=== PATIENT | male | born 1965 | race African-American/Black ===

== ENCOUNTER 2017-03-22 12:45 | Inpatient (IN) | payer OTHER ==
[2017-03-22 18:35] VITALS: BMI 31.6
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
[2017-03-22] MEDS ORDERED: MAGNESIUM CITRATE 300 ML BOTTLE PO PRN (23:44)
[2017-03-22] MEDS ORDERED: IBUPROFEN 400 MG TABLET (FP) PO PRN (23:44)
[2017-03-22] MEDS ORDERED: chlordiazePOXIDE HCL 25 MG CAPSULE PO ONE (23:44)
[2017-03-22] MEDS ORDERED: guaiFENesin/D-METHORPHAN HB 10 ML UNIT-DOSE CUPS PO PRN (23:44)
[2017-03-22] MEDS ORDERED: P-EPHED 60MG/TRIPROLIDI 2.5MG TABLET PO PRN (23:44)
[2017-03-22] MEDS ORDERED: NICOTINE POLACRILEX 2 MG GUM BC PRN (23:44)
[2017-03-22] MEDS ORDERED: MAG HYDROX/AL HYDROX/SIMETH 30 ML UNIT-DOSE CUP PO PRN (23:44)
[2017-03-22] MEDS ORDERED: LOPERAMIDE HCL 2 MG CAPSULE PO PRN (23:44)
[2017-03-22] MEDS ORDERED: chlordiazePOXIDE HCL 25 MG CAPSULE PO PRN (23:44)
[2017-03-22] MEDS ORDERED: MAGNESIUM HYDROX 2400MG/30ML ORAL SUSPENSION 30 ML CUP PO PRN (23:44)
[2017-03-22] MEDS ORDERED: MENTHOL/PHENOL 1 EACH UD MM PRN (23:44)
[2017-03-22] MEDS ORDERED: ALBUTEROL SO4 18 GM HFA INHALER IH PRN (23:46)
[2017-03-23] MEDS: chlordiazePOXIDE HCL 25 MG CAPSULE PO SCH ×6 (00:03→22:10)
[2017-03-23] MEDS: MONTELUKAST NA 10 MG TABLET PO SCH ×2 (00:06→22:10)
[2017-03-23] MEDS ORDERED: chlordiazePOXIDE HCL 25 MG CAPSULE PO PRN (00:10)
[2017-03-23] MEDS: hydrOXYzine PAMOATE 50 MG CAPSULE (FP) PO PRN (00:51)
[2017-03-23] MEDS: ACETAMINOPHEN 325 MG TABLET (FP) PO PRN (00:51)
[2017-03-23] MEDS ORDERED: chlordiazePOXIDE HCL 25 MG CAPSULE PO SCH (05:00)
[2017-03-23] MEDS ORDERED: EMTRICITABINE/TENOFOV ALAFENAM (DESCOVY) TABLET PO SCH (10:00)
[2017-03-23 10:43] LABS: HEMATOCRIT 37.4 % (35.4-49); HEMOGLOBIN 13.2 GM/dL (11.7-16.9); MCH 33.1 pg (25.7-33.7); MCHC 35.2 g/dl (32.0-35.9); MEAN CELL VOLUME 93.8 fl (80-96); PLATELET COUNT 224 K/MM3 (134-434); RBC 3.99 M/mm3 (4.00-5.60); RDW 12.7 % (11.9-15.9); WHITE BLOOD COUNT 4.1 K/mm3 (4.0-10.0)
[2017-03-23 10:47] LABS: ALBUMIN 3.8 g/dl (3.4-5.0); ANION GAP 9 (8-16); BILIRUBIN,TOTAL 0.5 mg/dL (0.2-1.0); BLOOD UREA NITROGEN 10 mg/dL (7-18); CALCIUM 8.7 mg/dL (8.5-10.1); CHLORIDE 102 mmol/L (98-107); CO2 27 mmol/L (21-32); CREATININE 0.8 mg/dL (0.7-1.3); GLUCOSE,RANDOM 92 mg/dL (74-106); POTASSIUM 3.6 mmol/L (3.5-5.1); SGOT/AST 30 U/L (15-37); SGPT/ALT 27 U/L (12-78); SODIUM 138 mmol/L (136-145)
[2017-03-23 10:48] LABS: ALK PHOS 91 U/L (45-117)
[2017-03-23] MEDS: ASPIRIN 81 MG CHEWABLE TABLETS PO SCH (11:24)
[2017-03-23] MEDS: RANITIDINE HCL 150 MG TABLET (FP) PO SCH (11:24)
[2017-03-23] MEDS: PRENATAL VITAMINS W/ FOLIC ACID TABLET (FP) PO SCH (11:25)
--- NOTE | 2017-03-23 12:20 | PN ---
[facility] CIWA - CIWA Score Nausea/Vomitin Muscle Tremors: 3 Anxiety: 3 Agitation: 3 Paroxysmal Sweats: 3 Orientation: 0-Oriented Tacttile Disturbances: 0-None Auditory Disturbances: 0-None Visual Disturbances: 0-None Headache: 0-None Present CIWA-Ar Total Score: 15 BHS Progress Note (SOAP) Subjective: tremors nasal congestion sleep disturbance Objective: 03/23/17 12:17 sleeping but arousable nasal congestion Vital Signs Temperature 97.7 F 03/23/17 10:34 Pulse Rate 76 03/23/17 10:34 Respiratory Rate 18 03/23/17 10:34 Blood Pressure 111/78 03/23/17 10:34 O2 Sat by Pulse Oximetry (%) Laboratory Last Values WBC 4.1 K/mm3 (4.0-10.0) 03/23/17 08:00 RBC 3.99 M/mm3 (4.00-5.60) L 03/23/17 08:00 Hgb 13.2 GM/dL (11.7-16.9) 03/23/17 08:00 Hct 37.4 % (35.4-49) 03/23/17 08:00 MCV 93.8 fl (80-96) 03/23/17 08:00 MCH 33.1 pg (25.7-33.7) 03/23/17 08:00 MCHC 35.2 g/dl (32.0-35.9) 03/23/17 08:00 RDW 12.7 % (11.9-15.9) 03/23/17 08:00 Plt Count 224 K/MM3 (134-434) D 03/23/17 08:00 MPV 8.0 fl (7.5-11.1) 03/23/17 08:00 Sodium 138 mmol/L (136-145) 03/23/17 08:00 Potassium 3.6 mmol/L (3.5-5.1) 03/23/17 08:00 Chloride 102 mmol/L (98-107) 03/23/17 08:00 Carbon Dioxide 27 mmol/L (21-32) 03/23/17 08:00 Anion Gap 9 (8-16) 03/23/17 08:00 BUN 10 mg/dL (7-18) 03/23/17 08:00 Creatinine 0.8 mg/dL (0.7-1.3) 03/23/17 08:00 Creat Clearance w eGFR > 60 (>60) 03/23/17 08:00 Random Glucose 92 mg/dL (74-106) 03/23/17 08:00 Calcium 8.7 mg/dL (8.5-10.1) 03/23/17 08:00 Total Bilirubin 0.5 mg/dL (0.2-1.0) D 03/23/17 08:00 AST 30 U/L (15-37) 03/23/17 08:00 ALT 27 U/L (12-78) 03/23/17 08:00 Alkaline Phosphatase 91 U/L (45-117) D 03/23/17 08:00 Total Protein 7.0 g/dl (6.4-8.2) 03/23/17 08:00 Albumin 3.8 g/dl (3.4-5.0) 03/23/17 08:00 labs noted Assessment: 03/23/17 12:19 withdrawal sx no acute distress Plan: continue detox
[2017-03-23] MEDS: RITONAVIR 100 MG TABLET PO SCH (15:41)
[2017-03-23] MEDS: EMTRICITABINE 200MG/TENOFOVIR 300MG PO SCH (15:41)
[2017-03-23] MEDS: DARUNAVIR ETHANOLATE 800 MG TAB PO SCH (15:42)
[2017-03-23] MEDS: NICOTINE 14 MG/24 HOURS TOPICAL PATCH TD SCH (15:51)
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
--- NOTE | 2017-03-23 16:48 | EKG ---
Test Reason : Blood Pressure : / mmHG Vent. Rate : 104 BPM Atrial Rate : 104 BPM P-R Int : 162 ms QRS Dur : 088 ms QT Int : 350 ms P-R-T Axes : 055 -13 058 degrees QTc Int : 460 ms SINUS TACHYCARDIA OTHERWISE NORMAL ECG NO PREVIOUS ECGS AVAILABLE Confirmed by FLORENTINO DESOUZA MD ([id number]) on 03/23/2017 4:48:32 PM Referred By: TRACEY BOBO Confirmed By:FLORENTINO DESOUZA MD
[2017-03-23] MEDS: QUEtiapine FUMARATE 200 MG TABLET PO SCH (22:10)
[2017-03-23] MEDS: THIAMINE HCL 100 MG TABLET (FP) PO SCH (22:10)
[2017-03-24] MEDS ORDERED: chlordiazePOXIDE 5 MG CAPSULE PO SCH (05:00)
[2017-03-24] MEDS: chlordiazePOXIDE HCL 25 MG CAPSULE PO SCH ×4 (05:18→22:00)
[2017-03-24] MEDS: DARUNAVIR ETHANOLATE 800 MG TAB PO SCH (10:59)
[2017-03-24] MEDS: ASPIRIN 81 MG CHEWABLE TABLETS PO SCH (10:59)
[2017-03-24] MEDS: PRENATAL VITAMINS W/ FOLIC ACID TABLET (FP) PO SCH (10:59)
[2017-03-24] MEDS: RANITIDINE HCL 150 MG TABLET (FP) PO SCH (10:59)
[2017-03-24] MEDS: EMTRICITABINE 200MG/TENOFOVIR 300MG PO SCH (11:00)
[2017-03-24] MEDS: RITONAVIR 100 MG TABLET PO SCH (11:00)
[2017-03-24] MEDS: NICOTINE 14 MG/24 HOURS TOPICAL PATCH TD SCH (11:01)
--- NOTE | 2017-03-24 12:16 | PN ---
[facility] CIWA - CIWA Score Nausea/Vomitin-No Nausea/No Vomiting Muscle Tremors: 3 Anxiety: 3 Agitation: 3 Paroxysmal Sweats: 1-Minimal Palms Moist Orientation: 0-Oriented Tacttile Disturbances: 0-None Auditory Disturbances: 0-None Visual Disturbances: 0-None Headache: 0-None Present CIWA-Ar Total Score: 10 S Progress Note (SOAP) Subjective: sweat tremor anxiety irritable Objective: 03/24/17 12:16 Vital Signs Temperature 97.0 F L 03/24/17 10:00 Pulse Rate 65 03/24/17 10:00 Respiratory Rate 18 03/24/17 10:00 Blood Pressure 115/78 03/24/17 10:00 O2 Sat by Pulse Oximetry (%) Laboratory Last Values WBC 4.1 K/mm3 (4.0-10.0) 03/23/17 08:00 RBC 3.99 M/mm3 (4.00-5.60) L 03/23/17 08:00 Hgb 13.2 GM/dL (11.7-16.9) 03/23/17 08:00 Hct 37.4 % (35.4-49) 03/23/17 08:00 MCV 93.8 fl (80-96) 03/23/17 08:00 MCH 33.1 pg (25.7-33.7) 03/23/17 08:00 MCHC 35.2 g/dl (32.0-35.9) 03/23/17 08:00 RDW 12.7 % (11.9-15.9) 03/23/17 08:00 Plt Count 224 K/MM3 (134-434) D 03/23/17 08:00 MPV 8.0 fl (7.5-11.1) 03/23/17 08:00 Sodium 138 mmol/L (136-145) 03/23/17 08:00 Potassium 3.6 mmol/L (3.5-5.1) 03/23/17 08:00 Chloride 102 mmol/L (98-107) 03/23/17 08:00 Carbon Dioxide 27 mmol/L (21-32) 03/23/17 08:00 Anion Gap 9 (8-16) 03/23/17 08:00 BUN 10 mg/dL (7-18) 03/23/17 08:00 Creatinine 0.8 mg/dL (0.7-1.3) 03/23/17 08:00 Creat Clearance w eGFR > 60 (>60) 03/23/17 08:00 Random Glucose 92 mg/dL (74-106) 03/23/17 08:00 Calcium 8.7 mg/dL (8.5-10.1) 03/23/17 08:00 Total Bilirubin 0.5 mg/dL (0.2-1.0) D 03/23/17 08:00 AST 30 U/L (15-37) 03/23/17 08:00 ALT 27 U/L (12-78) 03/23/17 08:00 Alkaline Phosphatase 91 U/L (45-117) D 03/23/17 08:00 Total Protein 7.0 g/dl (6.4-8.2) 03/23/17 08:00 Albumin 3.8 g/dl (3.4-5.0) 03/23/17 08:00 RPR Titer Nonreactive (NONREACTIVE) 03/23/17 08:00 lab noted Assessment: 03/24/17 12:16 withdrawal sx Plan: continue detox
[2017-03-24] MEDS: THIAMINE HCL 100 MG TABLET (FP) PO SCH (22:00)
[2017-03-24] MEDS: QUEtiapine FUMARATE 200 MG TABLET PO SCH (22:00)
[2017-03-24] MEDS: MONTELUKAST NA 10 MG TABLET PO SCH (22:00)
[2017-03-24] MEDS: hydrOXYzine PAMOATE 50 MG CAPSULE (FP) PO PRN (22:00)
[2017-03-25] MEDS ORDERED: chlordiazePOXIDE HCL 10 MG CAPSULE PO SCH (05:00)
[2017-03-25] MEDS: chlordiazePOXIDE 5 MG CAPSULE PO SCH ×4 (05:39→22:05)
[2017-03-25] MEDS: RITONAVIR 100 MG TABLET PO SCH (10:15)
[2017-03-25] MEDS: EMTRICITABINE 200MG/TENOFOVIR 300MG PO SCH (10:15)
[2017-03-25] MEDS: RANITIDINE HCL 150 MG TABLET (FP) PO SCH (10:15)
[2017-03-25] MEDS: DARUNAVIR ETHANOLATE 800 MG TAB PO SCH (10:15)
[2017-03-25] MEDS: PRENATAL VITAMINS W/ FOLIC ACID TABLET (FP) PO SCH (10:15)
[2017-03-25] MEDS: ASPIRIN 81 MG CHEWABLE TABLETS PO SCH (10:15)
[2017-03-25] MEDS: NICOTINE 14 MG/24 HOURS TOPICAL PATCH TD SCH (10:16)
--- NOTE | 2017-03-25 12:49 | PN ---
BHS Progress Note (SOAP) Subjective: ALERT,IRRITABLE,ANXIOUS,INTERRUPTED SLEEP,TREMOR Objective: 03/25/17 12:48 Vital Signs Temperature 98 F 03/25/17 11:51 Pulse Rate 83 03/25/17 11:51 Respiratory Rate 18 03/25/17 11:51 Blood Pressure 115/60 03/25/17 11:51 O2 Sat by Pulse Oximetry (%) Assessment: 03/25/17 12:48 WITHDRAWAL SYMPTOM Plan: CONTINUE DETOX,DISCHARGE IN AM
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
[2017-03-25] MEDS: THIAMINE HCL 100 MG TABLET (FP) PO SCH (22:04)
[2017-03-25] MEDS: QUEtiapine FUMARATE 200 MG TABLET PO SCH (22:05)
[2017-03-25] MEDS: MONTELUKAST NA 10 MG TABLET PO SCH (22:05)
[2017-03-26] MEDS: chlordiazePOXIDE HCL 10 MG CAPSULE PO SCH ×2 (05:49→12:22)
[2017-03-26] MEDS: DARUNAVIR ETHANOLATE 800 MG TAB PO SCH (10:06)
[2017-03-26] MEDS: PRENATAL VITAMINS W/ FOLIC ACID TABLET (FP) PO SCH (10:06)
[2017-03-26] MEDS: ASPIRIN 81 MG CHEWABLE TABLETS PO SCH (10:06)
[2017-03-26] MEDS: RANITIDINE HCL 150 MG TABLET (FP) PO SCH (10:06)
[2017-03-26] MEDS: RITONAVIR 100 MG TABLET PO SCH (12:19)
[2017-03-26] MEDS: EMTRICITABINE 200MG/TENOFOVIR 300MG PO SCH (12:19)
[2017-03-26] MEDS: NICOTINE 14 MG/24 HOURS TOPICAL PATCH TD SCH (12:20)
[2017-03-26] MEDS: ACETAMINOPHEN 325 MG TABLET (FP) PO PRN (12:21)
--- NOTE | 2017-03-26 12:40 | DS ---
[facility] Detox Discharge Summary Admission Date: 03/22/17 Discharge Date: 03/26/17 - History Present History: Alcohol Dependence, Cocaine Dependence Additional Comments: PATIENT GOING TO [facility] ([facility] FOR AFTERCARE. PATIENT WAS DISCHARGED FROM DETOX UNIT IN STABLE MEDICAL CONDITION. Pertinent Past History: History of MA, Schizophrenia, HIV, Depression, Asthma, Insomnia, Bipolar Disorder, Nicotine Dependence. - Physical Exam Results Vital Signs: Vital Signs Temperature 96.7 F L 03/26/17 10:17 Pulse Rate 84 03/26/17 10:17 Respiratory Rate 18 03/26/17 10:17 Blood Pressure 109/79 03/26/17 10:17 O2 Sat by Pulse Oximetry (%) Pertinent Admission Physical Exam Findings: WITHDRAWAL SYMPTOMS. Laboratory Tests 03/23/17 03/23/17 03/23/17 08:00 08:00 08:00 WBC 4.1 RBC 3.99 L Hgb 13.2 Hct 37.4 MCV 93.8 MCH 33.1 MCHC 35.2 RDW 12.7 Plt Count 224 D MPV 8.0 Sodium 138 Potassium 3.6 Chloride 102 Carbon Dioxide 27 Anion Gap 9 BUN 10 Creatinine 0.8 Creat Clearance w eGFR > 60 Random Glucose 92 Calcium 8.7 Total Bilirubin 0.5 D AST 30 ALT 27 Alkaline Phosphatase 91 D Total Protein 7.0 Albumin 3.8 RPR Titer Nonreactive LABS NOTED. - Treatment Hospital Course: Detox Protocol Followed, Detoxed Safely, Responded well, Discharged Condition Good, Rehab Referral Accepted Patient has Accepted a Rehab Referral to: [facility] ([facility]) . - Medication Discharge Medications: Ambulatory Orders Quetiapine Fumarate [Seroquel -] 500 mg PO HS 06/23/15 Quetiapine Fumarate [Seroquel -] 200 mg PO DAILY #30 tab 06/24/15 Albuterol Sulfate Inhaler - [Ventolin HFA Inhaler -] 2 inh PO Q4H PRN #1 inhaler 06/27/15 Aspirin [ASA -] 81 mg PO DAILY #30 tab.chew 06/27/15 Atazanavir [Reyataz -] 300 mg PO DAILY #30 capsule 06/27/15 Emtricitabine/Tenofovir [Truvada -] 200 - 300 mg PO DAILY #30 tablet 06/27/15 Montelukast Na [Singulair -] 10 mg PO DAILY #30 tablet 06/27/15 Ranitidine [Zantac -] 150 mg PO DAILY #30 tablet 06/27/15 Ritonavir [Norvir -] 100 mg PO DAILY #30 tab 07/25/15 Darunavir Ethanolate [Prezista -] 1 tab PO DAILY 03/22/17 Emtricitabine/Tenofov Alafenam [Descovy 200-25 mg Tablet (Nf)] 1 tab PO DAILY - Diagnosis (1) Insomnia Current Visit: Yes Status: Acute Qualifiers: Insomnia type: unspecified Qualified Code(s): G47.00 - Insomnia, unspecified (2) Alcohol dependence with uncomplicated withdrawal Current Visit: Yes Status: Chronic (3) Nicotine dependence Current Visit: Yes Status: Chronic Qualifiers: Nicotine product type: cigarettes Substance use status: uncomplicated Qualified Code(s): F17.210 - Nicotine dependence, cigarettes, uncomplicated (4) Schizophrenia Current Visit: Yes Status: Chronic Qualifiers: Schizophrenia type: unspecified Qualified Code(s): F20.9 - Schizophrenia, unspecified (5) HIV (human immunodeficiency virus infection) Current Visit: Yes Status: Chronic (6) Paranoid schizophrenia Current Visit: No Status: Chronic (7) Cocaine dependence Current Visit: Yes Status: Chronic Qualifiers: Substance use status: uncomplicated Qualified Code(s): F14.20 - Cocaine dependence, uncomplicated (8) Asthma Current Visit: No Status: Chronic Qualifiers: Asthma severity: mild intermittent Asthma complication type: uncomplicated - AMA Did Patient Leave Against Medical Advice: No
[2017-03-26 13:15] VITALS: BP 116/77; PULSE 83; TEMP 96.1
== END 2017-03-26 13:59 | disposition other institution (70) | DRG 774 ==
LOC: YASAS 12:45 → Y6N 20:55 → Y3N 03-25 21:39
PROVIDERS: ADMIT Internal Medicine; ATTEND Internal Medicine
PROC: HZ2ZZZZ Detoxification Services for Substance Abuse Treatment (ICD-10-PCS; principal; 2017-03-22)
DX: F10.230 Alcohol dependence with withdrawal, uncomplicated (principal); F14.20 Cocaine dependence, uncomplicated; F17.210 Nicotine dependence, cigarettes, uncomplicated; F20.0 Paranoid schizophrenia; I25.2 Old myocardial infarction; G47.00 Insomnia, unspecified; Z21 Asymptomatic human immunodeficiency virus [HIV] infection status; J45.20 Mild intermittent asthma, uncomplicated; R00.0 Tachycardia, unspecified; Z91.5 Personal history of self-harm
CPT/HCPCS: 36415; 80053; 85027; 86593; 93005; 93010

== ENCOUNTER 2017-03-26 13:56 | Inpatient (IN) | payer OTHER ==
[2017-03-26] MEDS ORDERED: MAG HYDROX/AL HYDROX/SIMETH 30 ML UNIT-DOSE CUP PO PRN (15:37)
[2017-03-26] MEDS ORDERED: LOPERAMIDE HCL 2 MG CAPSULE PO PRN (15:37)
[2017-03-26] MEDS ORDERED: MENTHOL/PHENOL 1 EACH UD MM PRN (15:37)
[2017-03-26] MEDS ORDERED: P-EPHED 60MG/TRIPROLIDI 2.5MG TABLET PO PRN (15:37)
[2017-03-26] MEDS ORDERED: MAGNESIUM CITRATE 300 ML BOTTLE PO PRN (15:37)
[2017-03-26] MEDS ORDERED: NICOTINE POLACRILEX 2 MG GUM BUC PRN (15:37)
[2017-03-26] MEDS ORDERED: MAGNESIUM HYDROX 2400MG/30ML ORAL SUSPENSION 30 ML CUP PO PRN (15:37)
--- NOTE | 2017-03-26 15:37 | HP ---
[facility] Rehab Assess/Revision - Admission History Admitted to Rehab from: [facility] Date of Admission to Rehab: 03/26/2016 - Vital signs Vital Signs: NOTED; STABLE. - Findings Detox History & Physical reviewed: Yes Concur with findings: Yes Comments/Additional Findings: PATIENT'S MEDICAL / MEDICATION HISTORY REVIEWED PRIOR TO DISCHARGE FROM DETOX UNIT. PATIENT WAS DISCHARGED FROM DETOX UNIT TO BE TAKEN TO REHAB UNIT IN STABLE MEDICAL CONDITION. Inpatient Rehab Admission - Initial Determination Are CD services needed?: Yes Free of communicable disease: Yes Not in need of hospitalization: Yes - Rehab Admission Criteria Previous failed treatment: Yes Comorbidities: Yes Patient is meeting Inpatient Rehab admission criteria:: Yes
[2017-03-26] MEDS ORDERED: ALBUTEROL SO4 18 GM HFA INHALER IH PRN (15:38)
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
[2017-03-26] MEDS ORDERED: QUEtiapine FUMARATE 400 MG TABLET ONE (20:46)
[2017-03-26] MEDS ORDERED: QUEtiapine FUMARATE 100 MG TABLET (FP) ONE (20:46)
[2017-03-26] MEDS ORDERED: QUEtiapine FUMARATE 400 MG TABLET PO SCH (22:00)
[2017-03-26] MEDS: QUETIAPINE FUMARATE 400 MG, QUETIAPINE FUMARATE 100 MG PO SCH (22:02)
[2017-03-26] MEDS: THIAMINE HCL 100 MG TABLET (FP) PO SCH (22:03)
[2017-03-27] MEDS: ACETAMINOPHEN 325 MG TABLET (FP) PO PRN ×3 (00:54→22:54)
[2017-03-27] MEDS: IBUPROFEN 400 MG TABLET (FP) PO PRN ×2 (06:21→16:53)
[2017-03-27] MEDS: DARUNAVIR ETHANOLATE 800 MG TAB PO SCH (10:15)
[2017-03-27] MEDS: MONTELUKAST NA 10 MG TABLET PO SCH (10:15)
[2017-03-27] MEDS: RANITIDINE HCL 150 MG TABLET (FP) PO SCH (10:15)
[2017-03-27] MEDS: QUEtiapine FUMARATE 200 MG TABLET PO SCH (10:15)
[2017-03-27] MEDS: EMTRICITABINE 200MG/TENOFOVIR 300MG PO SCH (10:16)
[2017-03-27] MEDS: ASPIRIN 81 MG CHEWABLE TABLETS PO SCH (10:16)
[2017-03-27] MEDS: RITONAVIR 100 MG TABLET PO SCH (10:16)
[2017-03-27] MEDS: PRENATAL VITAMINS W/ FOLIC ACID TABLET (FP) PO SCH (10:16)
[2017-03-27] MEDS: NICOTINE 14 MG/24 HOURS TOPICAL PATCH TD SCH (10:16)
[2017-03-27] MEDS: QUETIAPINE FUMARATE 400 MG, QUETIAPINE FUMARATE 100 MG PO SCH (21:55)
[2017-03-27] MEDS ORDERED: QUEtiapine FUMARATE 400 MG TABLET ONE (21:55)
[2017-03-27] MEDS ORDERED: QUEtiapine FUMARATE 100 MG TABLET (FP) ONE (21:55)
[2017-03-27] MEDS: THIAMINE HCL 100 MG TABLET (FP) PO SCH (21:56)
[2017-03-28] MEDS: IBUPROFEN 400 MG TABLET (FP) PO PRN ×2 (04:10→10:35)
[2017-03-28] MEDS: MONTELUKAST NA 10 MG TABLET PO SCH (10:33)
[2017-03-28] MEDS: RANITIDINE HCL 150 MG TABLET (FP) PO SCH (10:33)
[2017-03-28] MEDS: DARUNAVIR ETHANOLATE 800 MG TAB PO SCH (10:33)
[2017-03-28] MEDS: EMTRICITABINE 200MG/TENOFOVIR 300MG PO SCH (10:33)
[2017-03-28] MEDS: PRENATAL VITAMINS W/ FOLIC ACID TABLET (FP) PO SCH (10:33)
[2017-03-28] MEDS: QUEtiapine FUMARATE 200 MG TABLET PO SCH (10:33)
[2017-03-28] MEDS: RITONAVIR 100 MG TABLET PO SCH (10:33)
[2017-03-28] MEDS: ASPIRIN 81 MG CHEWABLE TABLETS PO SCH (10:34)
[2017-03-28] MEDS: NICOTINE 14 MG/24 HOURS TOPICAL PATCH TD SCH (10:34)
--- NOTE | 2017-03-28 11:34 | PN ---
S Progress Note (SOAP) Subjective: patietn c/o left neck pain and swelling 2/2 TRAUM Objective: 03/28/17 11:33 Vital Signs - 24 hr 03/28/17 03/28/17 03/28/17 00:30 03:30 07:30 Temperature 98.2 F Pulse Rate 82 Respiratory 18 18 18 Rate Blood Pressure 124/73 labs reviewed 03/28/17 11:42 NO BRUISINGNOTED, TENDER ONPALPATION NECK AND FACE, ATHRLETES FOOT, CONGESTION Assessment: 03/28/17 11:43 PAIN MEDS, ATC, TINACTIN, COLD MEDICATION
[2017-03-28] MEDS ORDERED: COLLOIDAL OATMEAL 1 BAR EACH TP PRN (11:43)
[2017-03-28] MEDS ORDERED: NAPROXEN 500 MG TABLET (FP) PO SCH (11:45)
[2017-03-28] MEDS ORDERED: PANTOPRAZOLE 40 MG TABLET (FP) PO SCH (11:45)
[2017-03-28] MEDS: TOLNAFTATE 1% CREAM 15 GM TUBE TP SCH ×2 (14:16→22:01)
[2017-03-28] MEDS: guaiFENesin/D-METHORPHAN HB 10 ML UNIT-DOSE CUPS PO PRN (14:18)
[2017-03-28] MEDS ORDERED: QUEtiapine FUMARATE 400 MG TABLET ONE (20:11)
[2017-03-28] MEDS ORDERED: QUEtiapine FUMARATE 100 MG TABLET (FP) ONE (20:11)
[2017-03-28] MEDS: CYCLOBENZAPRINE HCL 10 MG TABLET (FP) PO SCH (21:54)
[2017-03-28] MEDS: THIAMINE HCL 100 MG TABLET (FP) PO SCH (21:54)
[2017-03-28] MEDS: QUETIAPINE FUMARATE 400 MG, QUETIAPINE FUMARATE 100 MG PO SCH (21:54)
[2017-03-29] MEDS: guaiFENesin/D-METHORPHAN HB 10 ML UNIT-DOSE CUPS PO PRN (06:51)
[2017-03-29] MEDS: CYCLOBENZAPRINE HCL 10 MG TABLET (FP) PO SCH ×3 (06:51→21:41)
[2017-03-29] MEDS: DARUNAVIR ETHANOLATE 800 MG TAB PO SCH (10:19)
[2017-03-29] MEDS: MONTELUKAST NA 10 MG TABLET PO SCH (10:19)
[2017-03-29] MEDS: ASPIRIN 81 MG CHEWABLE TABLETS PO SCH (10:19)
[2017-03-29] MEDS: RANITIDINE HCL 150 MG TABLET (FP) PO SCH (10:20)
[2017-03-29] MEDS: RITONAVIR 100 MG TABLET PO SCH (10:20)
[2017-03-29] MEDS: QUEtiapine FUMARATE 200 MG TABLET PO SCH (10:20)
[2017-03-29] MEDS: EMTRICITABINE 200MG/TENOFOVIR 300MG PO SCH (10:20)
[2017-03-29] MEDS: PRENATAL VITAMINS W/ FOLIC ACID TABLET (FP) PO SCH (10:20)
[2017-03-29] MEDS: TOLNAFTATE 1% CREAM 15 GM TUBE TP SCH ×2 (10:21→21:42)
[2017-03-29] MEDS: NICOTINE 14 MG/24 HOURS TOPICAL PATCH TD SCH (10:21)
[2017-03-29] MEDS: IBUPROFEN 400 MG TABLET (FP) PO PRN (10:23)
[2017-03-29] MEDS ORDERED: QUEtiapine FUMARATE 400 MG TABLET ONE (20:08)
[2017-03-29] MEDS ORDERED: QUEtiapine FUMARATE 100 MG TABLET (FP) ONE (20:08)
[2017-03-29] MEDS: QUETIAPINE FUMARATE 400 MG, QUETIAPINE FUMARATE 100 MG PO SCH (21:41)
[2017-03-29] MEDS: THIAMINE HCL 100 MG TABLET (FP) PO SCH (21:41)
[2017-03-30] MEDS: IBUPROFEN 400 MG TABLET (FP) PO PRN (02:04)
[2017-03-30] MEDS: CYCLOBENZAPRINE HCL 10 MG TABLET (FP) PO SCH ×3 (07:03→21:30)
[2017-03-30] MEDS: DARUNAVIR ETHANOLATE 800 MG TAB PO SCH (10:35)
[2017-03-30] MEDS: NICOTINE 14 MG/24 HOURS TOPICAL PATCH TD SCH (10:35)
[2017-03-30] MEDS: PRENATAL VITAMINS W/ FOLIC ACID TABLET (FP) PO SCH (10:35)
[2017-03-30] MEDS: ASPIRIN 81 MG CHEWABLE TABLETS PO SCH (10:35)
[2017-03-30] MEDS: MONTELUKAST NA 10 MG TABLET PO SCH (10:35)
[2017-03-30] MEDS: RITONAVIR 100 MG TABLET PO SCH (10:35)
[2017-03-30] MEDS: RANITIDINE HCL 150 MG TABLET (FP) PO SCH (10:35)
[2017-03-30] MEDS: QUEtiapine FUMARATE 200 MG TABLET PO SCH (10:35)
[2017-03-30] MEDS: TOLNAFTATE 1% CREAM 15 GM TUBE TP SCH ×2 (10:36→21:31)
[2017-03-30] MEDS: EMTRICITABINE 200MG/TENOFOVIR 300MG PO SCH (10:36)
[2017-03-30] MEDS: ACETAMINOPHEN 325 MG TABLET (FP) PO PRN (13:41)
[2017-03-30] MEDS ORDERED: QUEtiapine FUMARATE 400 MG TABLET ONE (20:36)
[2017-03-30] MEDS ORDERED: QUEtiapine FUMARATE 100 MG TABLET (FP) ONE (20:36)
[2017-03-30] MEDS: THIAMINE HCL 100 MG TABLET (FP) PO SCH (21:30)
[2017-03-30] MEDS: QUETIAPINE FUMARATE 400 MG, QUETIAPINE FUMARATE 100 MG PO SCH (21:30)
[2017-03-31] MEDS: CYCLOBENZAPRINE HCL 10 MG TABLET (FP) PO SCH ×3 (07:18→21:32)
[2017-03-31] MEDS: ASPIRIN 81 MG CHEWABLE TABLETS PO SCH (10:16)
[2017-03-31] MEDS: PRENATAL VITAMINS W/ FOLIC ACID TABLET (FP) PO SCH (10:16)
[2017-03-31] MEDS: DARUNAVIR ETHANOLATE 800 MG TAB PO SCH (10:16)
[2017-03-31] MEDS: RANITIDINE HCL 150 MG TABLET (FP) PO SCH (10:16)
[2017-03-31] MEDS: NICOTINE 14 MG/24 HOURS TOPICAL PATCH TD SCH (10:17)
[2017-03-31] MEDS: EMTRICITABINE 200MG/TENOFOVIR 300MG PO SCH (10:17)
[2017-03-31] MEDS: RITONAVIR 100 MG TABLET PO SCH (10:17)
[2017-03-31] MEDS: MONTELUKAST NA 10 MG TABLET PO SCH (10:17)
[2017-03-31] MEDS: QUEtiapine FUMARATE 200 MG TABLET PO SCH (10:17)
[2017-03-31] MEDS: TOLNAFTATE 1% CREAM 15 GM TUBE TP SCH ×2 (10:18→21:32)
[2017-03-31] MEDS: guaiFENesin/D-METHORPHAN HB 10 ML UNIT-DOSE CUPS PO PRN (10:20)
[2017-03-31] MEDS ORDERED: QUEtiapine FUMARATE 400 MG TABLET ONE (20:41)
[2017-03-31] MEDS ORDERED: QUEtiapine FUMARATE 100 MG TABLET (FP) ONE (20:41)
[2017-03-31] MEDS: THIAMINE HCL 100 MG TABLET (FP) PO SCH (21:32)
[2017-03-31] MEDS: QUETIAPINE FUMARATE 400 MG, QUETIAPINE FUMARATE 100 MG PO SCH (21:32)
[2017-04-01] MEDS: CYCLOBENZAPRINE HCL 10 MG TABLET (FP) PO SCH ×3 (06:27→21:50)
[2017-04-01] MEDS: guaiFENesin/D-METHORPHAN HB 10 ML UNIT-DOSE CUPS PO PRN (06:28)
[2017-04-01] MEDS: PRENATAL VITAMINS W/ FOLIC ACID TABLET (FP) PO SCH (10:35)
[2017-04-01] MEDS: RANITIDINE HCL 150 MG TABLET (FP) PO SCH (10:35)
[2017-04-01] MEDS: NICOTINE 14 MG/24 HOURS TOPICAL PATCH TD SCH (10:35)
[2017-04-01] MEDS: QUEtiapine FUMARATE 200 MG TABLET PO SCH (10:35)
[2017-04-01] MEDS: DARUNAVIR ETHANOLATE 800 MG TAB PO SCH (10:35)
[2017-04-01] MEDS: RITONAVIR 100 MG TABLET PO SCH (10:35)
[2017-04-01] MEDS: EMTRICITABINE 200MG/TENOFOVIR 300MG PO SCH (10:35)
[2017-04-01] MEDS: MONTELUKAST NA 10 MG TABLET PO SCH (10:35)
[2017-04-01] MEDS: ASPIRIN 81 MG CHEWABLE TABLETS PO SCH (10:35)
[2017-04-01] MEDS: TOLNAFTATE 1% CREAM 15 GM TUBE TP SCH ×2 (10:35→21:51)
[2017-04-01] MEDS ORDERED: QUEtiapine FUMARATE 400 MG TABLET ONE (20:33)
[2017-04-01] MEDS ORDERED: QUEtiapine FUMARATE 100 MG TABLET (FP) ONE (20:33)
[2017-04-01] MEDS: QUETIAPINE FUMARATE 400 MG, QUETIAPINE FUMARATE 100 MG PO SCH (21:50)
[2017-04-01] MEDS: THIAMINE HCL 100 MG TABLET (FP) PO SCH (21:50)
[2017-04-02] MEDS: CYCLOBENZAPRINE HCL 10 MG TABLET (FP) PO SCH ×3 (06:47→21:53)
[2017-04-02] MEDS: ASPIRIN 81 MG CHEWABLE TABLETS PO SCH (10:24)
[2017-04-02] MEDS: PRENATAL VITAMINS W/ FOLIC ACID TABLET (FP) PO SCH (10:24)
[2017-04-02] MEDS: MONTELUKAST NA 10 MG TABLET PO SCH (10:24)
[2017-04-02] MEDS: EMTRICITABINE 200MG/TENOFOVIR 300MG PO SCH (10:25)
[2017-04-02] MEDS: DARUNAVIR ETHANOLATE 800 MG TAB PO SCH (10:25)
[2017-04-02] MEDS: RITONAVIR 100 MG TABLET PO SCH (10:25)
[2017-04-02] MEDS: QUEtiapine FUMARATE 200 MG TABLET PO SCH (10:25)
[2017-04-02] MEDS: RANITIDINE HCL 150 MG TABLET (FP) PO SCH (10:25)
[2017-04-02] MEDS: NICOTINE 14 MG/24 HOURS TOPICAL PATCH TD SCH (10:26)
[2017-04-02] MEDS: TOLNAFTATE 1% CREAM 15 GM TUBE TP SCH ×2 (10:26→21:52)
[2017-04-02] MEDS: guaiFENesin/D-METHORPHAN HB 10 ML UNIT-DOSE CUPS PO PRN (10:27)
[2017-04-02] MEDS: IBUPROFEN 400 MG TABLET (FP) PO PRN (13:06)
[2017-04-02] MEDS ORDERED: QUEtiapine FUMARATE 400 MG TABLET ONE (19:46)
[2017-04-02] MEDS ORDERED: QUEtiapine FUMARATE 100 MG TABLET (FP) ONE (19:46)
[2017-04-02] MEDS: THIAMINE HCL 100 MG TABLET (FP) PO SCH (21:52)
[2017-04-02] MEDS: QUETIAPINE FUMARATE 400 MG, QUETIAPINE FUMARATE 100 MG PO SCH (21:53)
[2017-04-03] MEDS: CYCLOBENZAPRINE HCL 10 MG TABLET (FP) PO SCH ×3 (07:00→21:42)
[2017-04-03] MEDS: ASPIRIN 81 MG CHEWABLE TABLETS PO SCH (10:52)
[2017-04-03] MEDS: DARUNAVIR ETHANOLATE 800 MG TAB PO SCH (10:52)
[2017-04-03] MEDS: MONTELUKAST NA 10 MG TABLET PO SCH (10:52)
[2017-04-03] MEDS: RANITIDINE HCL 150 MG TABLET (FP) PO SCH (10:53)
[2017-04-03] MEDS: QUEtiapine FUMARATE 200 MG TABLET PO SCH (10:53)
[2017-04-03] MEDS: PRENATAL VITAMINS W/ FOLIC ACID TABLET (FP) PO SCH (10:53)
[2017-04-03] MEDS: RITONAVIR 100 MG TABLET PO SCH (10:53)
[2017-04-03] MEDS: EMTRICITABINE 200MG/TENOFOVIR 300MG PO SCH (10:53)
[2017-04-03] MEDS: NICOTINE 14 MG/24 HOURS TOPICAL PATCH TD SCH (10:53)
[2017-04-03] MEDS: TOLNAFTATE 1% CREAM 15 GM TUBE TP SCH ×3 (10:54→21:43)
[2017-04-03] MEDS: guaiFENesin/D-METHORPHAN HB 10 ML UNIT-DOSE CUPS PO PRN (10:55)
[2017-04-03] MEDS: IBUPROFEN 400 MG TABLET (FP) PO PRN (12:33)
[2017-04-03] MEDS ORDERED: QUEtiapine FUMARATE 100 MG TABLET (FP) ONE (20:18)
[2017-04-03] MEDS ORDERED: QUEtiapine FUMARATE 400 MG TABLET ONE (20:18)
[2017-04-03] MEDS: THIAMINE HCL 100 MG TABLET (FP) PO SCH (21:42)
[2017-04-03] MEDS: QUETIAPINE FUMARATE 400 MG, QUETIAPINE FUMARATE 100 MG PO SCH (21:42)
[2017-04-04] MEDS: IBUPROFEN 400 MG TABLET (FP) PO PRN ×2 (03:00→22:04)
[2017-04-04] MEDS: CYCLOBENZAPRINE HCL 10 MG TABLET (FP) PO SCH ×3 (06:23→22:02)
[2017-04-04] MEDS: PRENATAL VITAMINS W/ FOLIC ACID TABLET (FP) PO SCH (10:34)
[2017-04-04] MEDS: DARUNAVIR ETHANOLATE 800 MG TAB PO SCH (10:34)
[2017-04-04] MEDS: QUEtiapine FUMARATE 200 MG TABLET PO SCH (10:34)
[2017-04-04] MEDS: MONTELUKAST NA 10 MG TABLET PO SCH (10:34)
[2017-04-04] MEDS: ASPIRIN 81 MG CHEWABLE TABLETS PO SCH (10:34)
[2017-04-04] MEDS: NICOTINE 14 MG/24 HOURS TOPICAL PATCH TD SCH (10:35)
[2017-04-04] MEDS: RITONAVIR 100 MG TABLET PO SCH (10:35)
[2017-04-04] MEDS: EMTRICITABINE 200MG/TENOFOVIR 300MG PO SCH (10:35)
[2017-04-04] MEDS: TOLNAFTATE 1% CREAM 15 GM TUBE TP SCH ×2 (10:36→22:03)
[2017-04-04] MEDS: RANITIDINE HCL 150 MG TABLET (FP) PO SCH (10:36)
[2017-04-04] MEDS: guaiFENesin/D-METHORPHAN HB 10 ML UNIT-DOSE CUPS PO PRN (10:38)
[2017-04-04] MEDS: ACETAMINOPHEN 325 MG TABLET (FP) PO PRN (10:38)
--- NOTE | 2017-04-04 17:38 | PN ---
BHS Progress Note Note: called by nathalie jane c/o nausea and diarrhoea - prn imodium and zofran ordered, if continues will evaluate in am
[2017-04-04] MEDS ORDERED: ONDANSETRON *ODT* 4 MG TABLET SL ONE (17:45)
[2017-04-04] MEDS ORDERED: QUEtiapine FUMARATE 100 MG TABLET (FP) ONE (19:38)
[2017-04-04] MEDS ORDERED: QUEtiapine FUMARATE 400 MG TABLET ONE (19:38)
[2017-04-04] MEDS: QUETIAPINE FUMARATE 400 MG, QUETIAPINE FUMARATE 100 MG PO SCH (22:02)
[2017-04-04] MEDS: THIAMINE HCL 100 MG TABLET (FP) PO SCH (22:02)
[2017-04-05] MEDS: CYCLOBENZAPRINE HCL 10 MG TABLET (FP) PO SCH ×3 (06:43→21:39)
[2017-04-05] MEDS: ASPIRIN 81 MG CHEWABLE TABLETS PO SCH (10:37)
[2017-04-05] MEDS: DARUNAVIR ETHANOLATE 800 MG TAB PO SCH (10:37)
[2017-04-05] MEDS: QUEtiapine FUMARATE 200 MG TABLET PO SCH (10:37)
[2017-04-05] MEDS: MONTELUKAST NA 10 MG TABLET PO SCH (10:37)
[2017-04-05] MEDS: PRENATAL VITAMINS W/ FOLIC ACID TABLET (FP) PO SCH (10:38)
[2017-04-05] MEDS: EMTRICITABINE 200MG/TENOFOVIR 300MG PO SCH (10:38)
[2017-04-05] MEDS: NICOTINE 14 MG/24 HOURS TOPICAL PATCH TD SCH (10:39)
[2017-04-05] MEDS: RITONAVIR 100 MG TABLET PO SCH (10:39)
[2017-04-05] MEDS: TOLNAFTATE 1% CREAM 15 GM TUBE TP SCH ×2 (10:39→21:40)
[2017-04-05] MEDS: RANITIDINE HCL 150 MG TABLET (FP) PO SCH (10:40)
[2017-04-05] MEDS: ONDANSETRON *ODT* 4 MG TABLET SL PRN (15:01)
[2017-04-05] MEDS ORDERED: QUEtiapine FUMARATE 400 MG TABLET ONE (19:56)
[2017-04-05] MEDS ORDERED: QUEtiapine FUMARATE 100 MG TABLET (FP) ONE (19:56)
[2017-04-05] MEDS: QUETIAPINE FUMARATE 400 MG, QUETIAPINE FUMARATE 100 MG PO SCH (21:39)
[2017-04-05] MEDS: THIAMINE HCL 100 MG TABLET (FP) PO SCH (21:40)
[2017-04-06] MEDS: ONDANSETRON *ODT* 4 MG TABLET SL PRN ×2 (06:36→17:28)
[2017-04-06] MEDS: CYCLOBENZAPRINE HCL 10 MG TABLET (FP) PO SCH ×3 (06:36→21:44)
[2017-04-06] MEDS: DARUNAVIR ETHANOLATE 800 MG TAB PO SCH (10:39)
[2017-04-06] MEDS: ASPIRIN 81 MG CHEWABLE TABLETS PO SCH (10:39)
[2017-04-06] MEDS: RITONAVIR 100 MG TABLET PO SCH (10:40)
[2017-04-06] MEDS: NICOTINE 14 MG/24 HOURS TOPICAL PATCH TD SCH (10:40)
[2017-04-06] MEDS: MONTELUKAST NA 10 MG TABLET PO SCH (10:40)
[2017-04-06] MEDS: EMTRICITABINE 200MG/TENOFOVIR 300MG PO SCH (10:40)
[2017-04-06] MEDS: QUEtiapine FUMARATE 200 MG TABLET PO SCH (10:40)
[2017-04-06] MEDS: TOLNAFTATE 1% CREAM 15 GM TUBE TP SCH ×2 (10:41→21:47)
[2017-04-06] MEDS: RANITIDINE HCL 150 MG TABLET (FP) PO SCH (10:41)
[2017-04-06] MEDS: PRENATAL VITAMINS W/ FOLIC ACID TABLET (FP) PO SCH (10:42)
[2017-04-06] MEDS: IBUPROFEN 400 MG TABLET (FP) PO PRN (17:28)
[2017-04-06] MEDS ORDERED: QUEtiapine FUMARATE 100 MG TABLET (FP) ONE (19:59)
[2017-04-06] MEDS ORDERED: QUEtiapine FUMARATE 400 MG TABLET ONE (19:59)
[2017-04-06] MEDS: THIAMINE HCL 100 MG TABLET (FP) PO SCH (21:44)
[2017-04-06] MEDS: QUETIAPINE FUMARATE 400 MG, QUETIAPINE FUMARATE 100 MG PO SCH (21:45)
[2017-04-07] MEDS: CYCLOBENZAPRINE HCL 10 MG TABLET (FP) PO SCH ×3 (06:20→21:39)
[2017-04-07] MEDS: DARUNAVIR ETHANOLATE 800 MG TAB PO SCH (10:27)
[2017-04-07] MEDS: ASPIRIN 81 MG CHEWABLE TABLETS PO SCH (10:27)
[2017-04-07] MEDS: MONTELUKAST NA 10 MG TABLET PO SCH (10:27)
[2017-04-07] MEDS: PRENATAL VITAMINS W/ FOLIC ACID TABLET (FP) PO SCH (10:27)
[2017-04-07] MEDS: RANITIDINE HCL 150 MG TABLET (FP) PO SCH (10:28)
[2017-04-07] MEDS: EMTRICITABINE 200MG/TENOFOVIR 300MG PO SCH (10:28)
[2017-04-07] MEDS: RITONAVIR 100 MG TABLET PO SCH (10:28)
[2017-04-07] MEDS: QUEtiapine FUMARATE 200 MG TABLET PO SCH (10:28)
[2017-04-07] MEDS: NICOTINE 14 MG/24 HOURS TOPICAL PATCH TD SCH (10:28)
[2017-04-07] MEDS: TOLNAFTATE 1% CREAM 15 GM TUBE TP SCH ×2 (10:29→21:40)
[2017-04-07] MEDS ORDERED: QUEtiapine FUMARATE 100 MG TABLET (FP) ONE (19:53)
[2017-04-07] MEDS ORDERED: QUEtiapine FUMARATE 400 MG TABLET ONE (19:53)
[2017-04-07] MEDS: THIAMINE HCL 100 MG TABLET (FP) PO SCH (21:39)
[2017-04-07] MEDS: QUETIAPINE FUMARATE 400 MG, QUETIAPINE FUMARATE 100 MG PO SCH (21:40)
[2017-04-08] MEDS: CYCLOBENZAPRINE HCL 10 MG TABLET (FP) PO SCH ×3 (06:41→21:49)
[2017-04-08] MEDS: RITONAVIR 100 MG TABLET PO SCH (10:46)
[2017-04-08] MEDS: MONTELUKAST NA 10 MG TABLET PO SCH (10:46)
[2017-04-08] MEDS: PRENATAL VITAMINS W/ FOLIC ACID TABLET (FP) PO SCH (10:46)
[2017-04-08] MEDS: NICOTINE 14 MG/24 HOURS TOPICAL PATCH TD SCH (10:46)
[2017-04-08] MEDS: ASPIRIN 81 MG CHEWABLE TABLETS PO SCH (10:46)
[2017-04-08] MEDS: RANITIDINE HCL 150 MG TABLET (FP) PO SCH (10:46)
[2017-04-08] MEDS: EMTRICITABINE 200MG/TENOFOVIR 300MG PO SCH (10:46)
[2017-04-08] MEDS: QUEtiapine FUMARATE 200 MG TABLET PO SCH (10:46)
[2017-04-08] MEDS: DARUNAVIR ETHANOLATE 800 MG TAB PO SCH (10:46)
[2017-04-08] MEDS: TOLNAFTATE 1% CREAM 15 GM TUBE TP SCH ×2 (10:48→21:49)
[2017-04-08] MEDS ORDERED: QUEtiapine FUMARATE 100 MG TABLET (FP) ONE (20:39)
[2017-04-08] MEDS ORDERED: QUEtiapine FUMARATE 400 MG TABLET ONE (20:40)
[2017-04-08] MEDS: QUETIAPINE FUMARATE 400 MG, QUETIAPINE FUMARATE 100 MG PO SCH (21:49)
[2017-04-08] MEDS: THIAMINE HCL 100 MG TABLET (FP) PO SCH (21:49)
[2017-04-09] MEDS: IBUPROFEN 400 MG TABLET (FP) PO PRN (04:50)
[2017-04-09] MEDS: CYCLOBENZAPRINE HCL 10 MG TABLET (FP) PO SCH ×3 (06:04→21:38)
[2017-04-09] MEDS: TOLNAFTATE 1% CREAM 15 GM TUBE TP SCH ×2 (10:32→21:38)
[2017-04-09] MEDS: RITONAVIR 100 MG TABLET PO SCH (10:32)
[2017-04-09] MEDS: QUEtiapine FUMARATE 200 MG TABLET PO SCH (10:32)
[2017-04-09] MEDS: DARUNAVIR ETHANOLATE 800 MG TAB PO SCH (10:32)
[2017-04-09] MEDS: MONTELUKAST NA 10 MG TABLET PO SCH (10:32)
[2017-04-09] MEDS: EMTRICITABINE 200MG/TENOFOVIR 300MG PO SCH (10:32)
[2017-04-09] MEDS: ASPIRIN 81 MG CHEWABLE TABLETS PO SCH (10:32)
[2017-04-09] MEDS: PRENATAL VITAMINS W/ FOLIC ACID TABLET (FP) PO SCH (10:32)
[2017-04-09] MEDS: NICOTINE 14 MG/24 HOURS TOPICAL PATCH TD SCH (10:33)
[2017-04-09] MEDS: RANITIDINE HCL 150 MG TABLET (FP) PO SCH (10:33)
[2017-04-09] MEDS ORDERED: QUEtiapine FUMARATE 100 MG TABLET (FP) ONE (20:40)
[2017-04-09] MEDS ORDERED: QUEtiapine FUMARATE 400 MG TABLET ONE (20:40)
[2017-04-09] MEDS: THIAMINE HCL 100 MG TABLET (FP) PO SCH (21:37)
[2017-04-09] MEDS: QUETIAPINE FUMARATE 400 MG, QUETIAPINE FUMARATE 100 MG PO SCH (21:37)
[2017-04-10] MEDS: CYCLOBENZAPRINE HCL 10 MG TABLET (FP) PO SCH (06:45)
[2017-04-10] MEDS: ACETAMINOPHEN 325 MG TABLET (FP) PO PRN (06:47)
[2017-04-10 06:48] VITALS: BP 115/83; PULSE 88; TEMP 97.5
[2017-04-10] MEDS: ASPIRIN 81 MG CHEWABLE TABLETS PO SCH (09:28)
[2017-04-10] MEDS: RANITIDINE HCL 150 MG TABLET (FP) PO SCH (09:28)
[2017-04-10] MEDS: PRENATAL VITAMINS W/ FOLIC ACID TABLET (FP) PO SCH (09:28)
[2017-04-10] MEDS: QUEtiapine FUMARATE 200 MG TABLET PO SCH (09:28)
[2017-04-10] MEDS: MONTELUKAST NA 10 MG TABLET PO SCH (09:28)
[2017-04-10] MEDS: DARUNAVIR ETHANOLATE 800 MG TAB PO SCH (09:28)
[2017-04-10] MEDS: TOLNAFTATE 1% CREAM 15 GM TUBE TP SCH (09:28)
[2017-04-10] MEDS: NICOTINE 14 MG/24 HOURS TOPICAL PATCH TD SCH (09:28)
[2017-04-10] MEDS: RITONAVIR 100 MG TABLET PO SCH (09:31)
[2017-04-10] MEDS: EMTRICITABINE 200MG/TENOFOVIR 300MG PO SCH (09:32)
--- NOTE | 2017-04-10 12:00 | PN ---
Psychiatric Progress Note Vital Signs: Vital Signs Period Temp Pulse Resp BP Sys/Meza Pulse Ox Last 24 Hr 97.5 F 88 18-18 115/83 Date of Session: 04/10/17 Chief Complaint:: discharge visit HPI: Patient has addressed alcohol, cocaine, nicotine dependence comorbid Schizophrenia. ROS: Asthma, HIV + medically managed. Current Side Effect: No Lab tests ordered: No Lab tests reviewed: Yes Provider note:: Patient has completed today his treatment and met his goals, will continue to address his issues at [facility]. Patient was encouraged to utilize all supports availble to prevent relapses. Patient verbalized his resolution to stay sober and adherent to every steps of his outpatient treatment plans, medications (seroquel) well tolerated, patient denies a/v hallucinations and paranoid thoughts. E-scripts tranferred to his pharmacy, patient is stable for discharge today. Total face to face time:: 15 Mental Status Exam - Mental Status Exam Alert and Oriented to: Time, Place, Person Cognitive Function: Good Patient Appearance: Well Groomed Mood: Hopeful Affect: Appropriate, Mood Congruent Patient Behavior: Appropriate, Cooperative Speech Pattern: Clear, Appropriate Voice Loudness: Normal Thought Process: Intact, Goal Oriented Thought Disorder: Not Present Hallucinations: Denies Suicidal Ideation: Denies Homicidal Ideation: Denies Insight/Judgement: Fair Sleep: Fair Appetite: Good Muscle strength/Tone: Normal Gait/Station: Normal Psychiatric Treatment Plan - Problem List (2) Cocaine dependence Qualifiers: Substance use status: uncomplicated Qualified Code(s): F14.20 - Cocaine dependence, uncomplicated (3) Nicotine dependence Qualifiers: Nicotine product type: cigarettes Substance use status: uncomplicated Qualified Code(s): F17.210 - Nicotine dependence, cigarettes, uncomplicated (4) Schizophrenia Qualifiers: Schizophrenia type: unspecified Qualified Code(s): F20.9 - Schizophrenia, unspecified
== END 2017-04-10 10:15 | disposition home or self-care (01) | DRG 772 ==
LOC: YASAS 13:56 → Y5N 13:57
PROVIDERS: ADMIT Internal Medicine; ATTEND Internal Medicine
PROC: HZ42ZZZ Group Counseling for Substance Abuse Treatment, Cognitive-Behavioral (ICD-10-PCS; principal; 2017-03-26)
DX: F10.20 Alcohol dependence, uncomplicated (principal); F14.20 Cocaine dependence, uncomplicated; F17.210 Nicotine dependence, cigarettes, uncomplicated; F20.9 Schizophrenia, unspecified; G24.01 Drug induced subacute dyskinesia; J45.20 Mild intermittent asthma, uncomplicated; I25.10 Atherosclerotic heart disease of native coronary artery without angina pectoris; Z21 Asymptomatic human immunodeficiency virus [HIV] infection status

== ENCOUNTER 2019-04-15 19:48 | Inpatient (IN) | payer OTHER ==
--- NOTE | 2019-04-15 20:03 | PDOC ---
Attending Attestation - Resident Resident Name: Alvarado Puentes - ED Attending Attestation I have performed the following: I have examined & evaluated the patient, The case was reviewed & discussed with the resident, I agree w/resident's findings & plan - HPI HPI: 04/16/19 01:17 see resident hpi - Physicial Exam PE: 04/16/19 01:17 see resident exam - Medical Decision Making 04/16/19 [id number] male with history of peptic ulcer disease currently on Eliquis for DVT with black tarry stools and epigastric pain sent from rehab for evaluation CT scan of the chest abdomen and pelvis did show varices Patient has had no hematemesis or vomiting Positive black tarry stool on exam Protonix 40 mg IV administered We will admit to medical service for further evaluation
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
[2019-04-15] MEDS ORDERED: ACETAMINOPHEN 1000 MG/100 ML VIAL (NON FORMULARY) IVPB ONE (20:49)
[2019-04-15] MEDS ORDERED: PANTOPRAZOLE SODIUM 40 MG VIAL IVPUSH ONE (20:49)
[2019-04-15] MEDS ORDERED: SODIUM CHLORIDE 1,000 ML IV STA (20:49)
[2019-04-15] MEDS ORDERED: PANTOPRAZOLE SODIUM 40 MG VIAL ONE (21:05)
[2019-04-15] MEDS ORDERED: ACETAMINOPHEN INJECTION 100 ML IVPB ONE (21:05)
[2019-04-15 21:40] LABS: EOS % 2.7 % (0-4.5); HEMATOCRIT 42.6 % (35.4-49); HEMOGLOBIN 15.1 GM/dL (11.7-16.9); LYMPH % 45.6 % (8-40); MCH 33.2 pg (25.7-33.7); MCHC 35.5 g/dl (32.0-35.9); MEAN CELL VOLUME 93.6 fl (80-96); MEAN PLT VOLUME 8.1 fl (7.5-11.1); MONO % 10.8 % (3.8-10.2); NEUT % 39.9 % (42.8-82.8); PLATELET COUNT 306 K/MM3 (134-434); RBC 4.55 M/mm3 (4.00-5.60); RDW 13.6 % (11.9-15.9); WHITE BLOOD COUNT 4.7 K/mm3 (4.0-10.0)
[2019-04-15 21:55] LABS: INR 1.18 (0.83-1.09); PROTHROMBIN TIME (PATIENT) 13.9 SEC (9.7-13.0)
[2019-04-15 22:07] LABS: ALBUMIN 4.3 g/dl (3.4-5.0); BILIRUBIN,TOTAL 0.4 mg/dL (0.2-1); BLOOD UREA NITROGEN 14.1 mg/dL (7-18); CALCIUM 9.3 mg/dL (8.5-10.1); POTASSIUM 4.2 mmol/L (3.5-5.1); TOT PROT 7.8 g/dl (6.4-8.2)
--- NOTE | 2019-04-15 22:15 | PDOC ---
*Physical Exam - Vital Signs Last Vital Signs Temp Pulse Resp BP Pulse Ox 98.1 F 87 19 110/74 97 04/15/19 19:51 04/15/19 19:51 04/15/19 19:51 04/15/19 19:51 04/15/19 19:51 ED Treatment Course - LABORATORY CBC & Chemistry Diagram: 04/16/19 07:25 04/16/19 07:25 - ADDITIONAL ORDERS Additional order review: Laboratory Results 04/15/19 04/15/19 04/15/19 21:00 21:00 20:30 PT with INR 13.90 H INR 1.18 H Sodium 138 Potassium 4.2 Chloride 106 Carbon Dioxide 27 Anion Gap 6 L BUN 14.1 Creatinine 1.0 Est GFR (CKD-EPI)AfAm 98.46 Est GFR (CKD-EPI)NonAf 84.95 Random Glucose 99 Calcium 9.3 Total Bilirubin 0.4 AST 26 ALT 30 Alkaline Phosphatase 81 Total Protein 7.8 Albumin 4.3 Stool Occult Blood Negative 04/15/19 21:00 RBC 4.55 MCV 93.6 MCHC 35.5 RDW 13.6 MPV 8.1 Neutrophils % 39.9 L Lymphocytes % 45.6 H Monocytes % 10.8 H Eosinophils % 2.7 Basophils % 1.0 - Medications Given in the ED: ED Medications Discontinued Medications Generic Name Dose Route Start Last Admin Trade Name Freq PRN Reason Stop Dose Admin Acetaminophen 1,000 mg 04/15/19 20:49 04/15/19 21:11 Ofirmev Injection - IVPB 04/15/19 20:50 1,000 mg ONCE ONE Administration Sodium Chloride 1,000 mls @ 1,000 mls/hr 04/15/19 20:49 04/15/19 21:11 Normal Saline - IV 04/15/19 21:48 1,000 mls/hr ASDIR STA Administration Pantoprazole Sodium 80 mg 04/15/19 20:49 04/15/19 21:11 Protonix Iv IVPUSH 04/15/19 20:50 80 mg ONCE ONE Administration Medical Decision Making - Medical Decision Making 04/15/19 22:13 Pt received in sign out from Dr. Puentes. Pt presenting with melena, epigastric pain radiating to the mouth. Hx of GERD. Pending CT chest/abd w/ contrast to r/o bleeding source. F/u labs to r/o anemia. Plan to admit to hospitalist for upper GI bleed. 04/16/19 00:59 CXR shows no acute thoracic pathology. CT chest/abd/pelv shows esophageal varices but no signs of active hemorrhage. Labs reviewed. Laboratory Tests 04/15/19 04/15/19 04/15/19 20:30 21:00 21:00 WBC 4.7 RBC 4.55 Hgb 15.1 Hct 42.6 MCV 93.6 MCH 33.2 MCHC 35.5 RDW 13.6 Plt Count 306 D MPV 8.1 Absolute Neuts (auto) 1.9 Neutrophils % 39.9 L Lymphocytes % 45.6 H Monocytes % 10.8 H Eosinophils % 2.7 Basophils % 1.0 Nucleated RBC % 0 PT with INR INR Sodium Potassium Chloride Carbon Dioxide Anion Gap BUN Creatinine Est GFR (CKD-EPI)AfAm Est GFR (CKD-EPI)NonAf Random Glucose Calcium Total Bilirubin AST ALT Alkaline Phosphatase Creatine Kinase 351 H Creatine Kinase Index 1.0 CK-MB (CK-2) 3.7 H Troponin I < 0.02 Total Protein Albumin Lipase 107 Stool Occult Blood Negative Blood Type Antibody Screen 04/15/19 04/15/19 04/15/19 21:00 21:00 21:00 WBC RBC Hgb Hct MCV MCH MCHC RDW Plt Count MPV Absolute Neuts (auto) Neutrophils % Lymphocytes % Monocytes % Eosinophils % Basophils % Nucleated RBC % PT with INR 13.90 H INR 1.18 H Sodium 138 Potassium 4.2 Chloride 106 Carbon Dioxide 27 Anion Gap 6 L BUN 14.1 Creatinine 1.0 Est GFR (CKD-EPI)AfAm 98.46 Est GFR (CKD-EPI)NonAf 84.95 Random Glucose 99 Calcium 9.3 Total Bilirubin 0.4 AST 26 ALT 30 Alkaline Phosphatase 81 Creatine Kinase Creatine Kinase Index CK-MB (CK-2) Troponin I Total Protein 7.8 Albumin 4.3 Lipase Stool Occult Blood Blood Type A NEGATIVE Antibody Screen Negative 04/16/19 02:02 EKG shows NSR, 64 bpm, no ST elevation/depression, QTc 443. 04/16/19 02:18 D/w Dr. Leonard who accepts the patient for admission. Discharge - Discharge Information Problems reviewed: Yes Clinical Impression/Diagnosis: Melena Condition: Fair - Admission Yes - Follow up/Referral - Patient Discharge Instructions - Post Discharge Activity
[2019-04-15 22:26] LABS: LIPASE 107 U/L (73-393)
[2019-04-16] MEDS ORDERED: FAMOTIDINE 20 MG/50 ML IVPB 20 MG/50 ML MG IVPB ONE (01:17)
[2019-04-16] MEDS ORDERED: MAG HYDROX/AL HYDROX/SIMETH -MYLANTA- ORAL SUSPENSION PO ONE (01:17)
[2019-04-16] MEDS ORDERED: MAG HYDROX/AL HYDROX/SIMETH 30 ML UNIT-DOSE CUP ONE (01:19)
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
[2019-04-16] MEDS: OCTREOTIDE ACETATE 200 MCG, OCTREOTIDE ACETATE 1,000 MCG in DEXTROSE 5%-WATER - 496 ML IVPB SCH (03:35)
[2019-04-16] MEDS ORDERED: CEFTRIAXONE 1 GM/50 ML BAG ONE (04:00)
[2019-04-16 04:20] LABS: BASO % 0.6 % (0-2.0); HEMATOCRIT 39.7 % (35.4-49); HEMOGLOBIN 13.9 GM/dL (11.7-16.9); LYMPH % 59.1 % (8-40); MEAN CELL VOLUME 94.2 fl (80-96); MEAN PLT VOLUME 8.4 fl (7.5-11.1); MONO % 12.8 % (3.8-10.2); NEUT % 24.5 % (42.8-82.8); PLATELET COUNT 284 K/MM3 (134-434); RBC 4.21 M/mm3 (4.00-5.60); RDW 13.8 % (11.9-15.9); WHITE BLOOD COUNT 4.3 K/mm3 (4.0-10.0)
[2019-04-16] MEDS: CEFTRIAXONE 1 GM in DEXTROSE 5%-WATER - 50 ML IVPB SCH (04:27)
[2019-04-16] MEDS ORDERED: PANTOPRAZOLE SODIUM 80 MG in SODIUM CHLORIDE 100 ML IVPB SCH (04:30)
[2019-04-16] MEDS ORDERED: chlordiazePOXIDE HCL 10 MG CAPSULE PO PRN (04:43)
[2019-04-16] MEDS ORDERED: SODIUM CHLORIDE 1,000 ML IV SCH (04:45)
[2019-04-16] MEDS ORDERED: chlordiazePOXIDE HCL 25 MG CAPSULE PO SCH (05:00)
[2019-04-16] MEDS ORDERED: PANTOPRAZOLE SODIUM 40 MG VIAL ONE (05:15)
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
[2019-04-16] MEDS ORDERED: LORazepam 2 MG/ML SDV VIAL IVPUSH PRN (05:52)
[2019-04-16 07:54] LABS: HEMATOCRIT 41.1 % (35.4-49); HEMOGLOBIN 14.5 GM/dL (11.7-16.9); MCH 33.3 pg (25.7-33.7); MCHC 35.2 g/dl (32.0-35.9); MEAN CELL VOLUME 94.5 fl (80-96); PLATELET COUNT 268 K/MM3 (134-434); RBC 4.35 M/mm3 (4.00-5.60); RDW 13.6 % (11.9-15.9); WHITE BLOOD COUNT 3.4 K/mm3 (4.0-10.0)
[2019-04-16 08:10] LABS: INR 1.13 (0.83-1.09); PROTHROMBIN TIME (PATIENT) 13.3 SEC (9.7-13.0)
[2019-04-16 08:13] LABS: ACTIVATED PTT 33.3 SECONDS (25.2-36.5)
--- NOTE | 2019-04-16 08:23 | CON.GI ---
Consult Consult Specialty:: GI Referred by:: Dr Gennaro Leonard Reason for Consultation:: Esophageal Varices - History of Present Illness History of Present Illness: Patient is a 53 y/o male with past medical history of HIV, PE (2019 on Eliquis) , Asthma, and Schizophrenia. Consult was placed for esophageal varices. Patient states that he has been experiencing dark tarry stools and hematemesis which began 3-4 days ago. He states this began Saturday after a heavy week of drinking. Patient states the week before he was drinking 1/5 of vodka a day. He also complains of lower abdominal pain accompanied with nausea and vomiting after ingesting food. He says he never had an EGD performed but had a colonoscopy about a year ago at [facility] which he says was normal (no report to view). Labs in ER show initial Hg 15.1 and repeat 13.9, Stool OB negative. - History Source History Provided By: Patient Limitations to Obtaining History: No Limitations - Past Medical History Pulmonary: Yes: Asthma, Pulmonary Embolus Infectious Disease: Yes: HIV Psych: Yes: Schizophrenia - Alcohol/Substance Use Hx Alcohol Use: Yes (more than 20 years) History of Substance Use: reports: Cocaine - Smoking History Smoking history: Never smoked Have you smoked in the past 12 months: Yes Aproximately how many cigarettes per day: 4 - Social History ADL: Independent Occupation: unemployed Home Medications - Allergies Allergies/Adverse Reactions: Allergies Allergy/AdvReac Type Severity Reaction Status Date / Time No Known Drug Allergies Allergy Verified 04/15/19 20:28 PANCAKE Allergy Difficulty Uncoded 04/15/19 20:28 Breathing - Home Medications Home Medications: Ambulatory Orders Albuterol Sulfate [Proventil Hfa] 6.7 gm IH Q4H PRN 04/15/19 Apixaban [Eliquis] 5 mg PO DAILY 04/15/19 Atorvastatin Calcium 40 mg PO DAILY 04/15/19 Benztropine Mesylate 0.5 mg PO HS 04/15/19 Citalopram Hydrobromide [Celexa -] 20 mg PO DAILY 04/15/19 Diclofenac Sodium [Diclofenac Sodium ER] 100 mg PO BID 04/15/19 Dolutegravir/Rilpivirine [Juluca 50-25 mg Tablet] 1 each PO DAILY 04/15/19 Ketoprofen 50 mg PO BID 04/15/19 Quetiapine Fumarate [Seroquel -] 100 mg PO BID 04/15/19 Quetiapine Fumarate [Seroquel -] 400 mg PO HS 04/15/19 Valacyclovir HCl [Valtrex -] 500 mg PO BID PRN 04/15/19 Review of Systems - Review of Systems Constitutional: reports: Loss of Appetite Eyes: reports: No Symptoms HENT: reports: No Symptoms Neck: reports: No Symptoms Cardiovascular: reports: No Symptoms Respiratory: reports: No Symptoms Gastrointestinal: reports: Abdominal Pain, Melena, Nausea, Vomiting, Vomiting Blood Genitourinary: reports: No Symptoms Breasts: reports: No Symptoms Reported Musculoskeletal: reports: No Symptoms Integumentary: reports: No Symptoms Neurological: reports: No Symptoms Endocrine: reports: No Symptoms Hematology/Lymphatic: reports: No Symptoms Psychiatric: reports: No Symptoms Physical Exam-GI Vital Signs: Vital Signs Temperature 98.1 F 04/15/19 19:51 Pulse Rate 64 04/16/19 05:57 Respiratory Rate 18 04/16/19 05:57 Blood Pressure 119/73 04/16/19 05:57 O2 Sat by Pulse Oximetry (%) 99 04/16/19 05:57 Constitutional: Yes: No Distress, Calm Eyes: Yes: Conjunctiva Clear HENT: Yes: Atraumatic Cardiovascular: Yes: Regular Rate and Rhythm Respiratory: Yes: Regular, CTA Bilaterally Gastrointestinal Inspection: Yes: WNL. No: Ascites, Distention, Hernia, Scars, Other ...Auscultate: Yes: Normoactive Bowel Sounds. No: Hyperactive Bowel Sounds, Hypoactive Bowel Sounds, No Bowel Sounds, Other ...Palpate: Yes: Soft, Tenderness (diffuse). No: Firm/Rigid, Guarding, Hepatomegaly, Mass, Pulsatile Mass, Splenomegaly, Tenderness, Epigastium, Tenderness, Rebound, Other ...Percussion: Yes: Tympanitic. No: Dullness, Fluid Wave, Other Neurological: Yes: Alert, Oriented Psychiatric: Yes: Alert, Oriented Labs: CBC, BMP 04/16/19 07:25 INR, PTT INR 1.13 (0.83-1.09) H 04/16/19 07:25 Problem List - Problems (1) Esophageal varices Assessment/Plan: > Chest CT scan shows probable small varices about the distal esophagus with no evidence of active bleeding >Protonix drip >monitor Hg daily and transfuse for Hg <8.0 >NPO >will scheduled patient for EGD tomorrow Code(s): I85.00 - ESOPHAGEAL VARICES WITHOUT BLEEDING (2) Melena Assessment/Plan: >Stool OB neg >Protonix drip >monitor Hg daily and transfuse for Hg <8.0 >NPO >will scheduled patient for EGD tomorrow >Hg stable at 14.5 Code(s): K92.1 - MELENA
[2019-04-16 08:24] LABS: ALBUMIN 4.1 g/dl (3.4-5.0); BILIRUBIN,TOTAL 0.8 mg/dL (0.2-1); BLOOD UREA NITROGEN 16.1 mg/dL (7-18); CALCIUM 8.9 mg/dL (8.5-10.1); MAGNESIUM 2.4 mg/dL (1.8-2.4); PHOSPHOROUS 3.5 mg/dL (2.5-4.9); POTASSIUM 4.8 mmol/L (3.5-5.1); TOT PROT 7.1 g/dl (6.4-8.2)
[2019-04-16] MEDS ORDERED: FOLIC ACID INJECTION - 1 MG, THIAMINE HCL 100 MG, MULTIVIT INJECTION ADULT 10 ML in SOD... IVPB ONE (09:00)
[2019-04-16] MEDS ORDERED: CITALOPRAM HYDROBROMIDE 20 MG TABLET PO SCH (10:00)
[2019-04-16] MEDS ORDERED: PATIENT'S OWN MEDICATION (NON-FORMULARY) (Dolutegravir/Rilpivirine [Juluca 50-25 Mg Tablet PO SCH (10:00)
[2019-04-16] MEDS ORDERED: QUEtiapine FUMARATE 100 MG TABLET (FP) PO SCH (10:00)
--- NOTE | 2019-04-16 10:52 | PN ---
Progress Note (short form) - Note Progress Note: ID CONSULT DICTATED
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
[2019-04-16 11:11] VITALS: BMI 28.4
[2019-04-16] MEDS: DOLUTEGRAVIR SODIUM 50 MG TABLET (NON-FORMULARY) PO SCH (11:46)
[2019-04-16] MEDS: RILPIVIRINE HCL 25 MG TABLET PO SCH (11:46)
--- NOTE | 2019-04-16 12:00 | PN ---
Teaching Attending Note Name of Resident: Rosi Arellano ATTENDING PHYSICIAN STATEMENT I saw and evaluated the patient. I reviewed the resident's note and discussed the case with the resident. I agree with the resident's findings and plan as documented. SUBJECTIVE: Pt seen and examined in the ICU. No further bleeding. Denies abdominal pain, shortness of breath, chest pain. OBJECTIVE: Vital Signs Period Temp Pulse Resp BP Sys/Meza Pulse Ox Last 24 Hr 97.9 F-98.1 F 54-87 14-19 101-121/53-74 97-99 Intake & Output 04/13/19 04/14/19 04/15/19 04/16/19 23:59 23:59 23:59 23:59 Weight 77.111 kg 79.9 kg Gen: NAD at rest Heart: RRR Lung: decreased breath sounds at the bases Abd: soft, nontender Ext: no edema CBC, BMP 04/16/19 07:25 04/16/19 07:25 Active Medications Atorvastatin Calcium (Lipitor -) 40 mg PO HS [facility] Benztropine Mesylate (Cogentin -) 0.5 mg PO HS [facility] Chlorhexidine Gluconate (Hibiclens For Decolonization -) 1 applic TP HS [facility] Octreotide Acetate 200 mcg/Octreotide Acetate 1,000 mcg/Dextrose 500 mls @ 20.833 mls/hr IVPB [facility] Last Admin: 04/16/19 03:35 Dose: 20.833 mls/hr Ceftriaxone Sodium 1 gm/ (Dextrose) 50 mls @ 100 mls/hr IVPB DAILY [facility] Last Admin: 04/16/19 04:27 Dose: 100 mls/hr Folic Acid 1 mg/ Thiamine HCl 100 mg/ Multivitamins/Minerals 10 ml/ Sodium Chloride 1,000 mls @ 125 mls/hr IVPB ONCE ONE Stop: 04/16/19 16:59 Last Admin: 04/16/19 11:12 Dose: 125 mls/hr Lorazepam (Ativan Injection -) 2 mg IVPUSH Q6H PRN PRN Reason: WITHDRAWAL(CONT SUBST) Mupirocin (Bactroban Ointment (For Decolonization) -) 1 applic NS BID [facility] Stop: 04/21/19 21:59 Pantoprazole Sodium (Protonix -) 40 mg PO DAILY [facility] ASSESSMENT AND PLAN: r/o GI bleed h/o PE on anticoagulation HIV Polysubstance Abuse Asthma Bipolar Disorder Schizophrenia Hyperlipidemia - continue protonix - monitor H/H - transfuse as needed - NPO for now - monitor for withdrawal - obtain records regarding history of PE, will need to address risks/benefits of anticoagulation with evidence of varices - DVT prophylaxis - can monitor on floor
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
[2019-04-16] MEDS ORDERED: PNEUMOC 13-VAL CONJ-DIP CRM/PF 0.5 ML DISP.SYRIN IM ONE (13:30)
--- NOTE | 2019-04-16 14:26 | EKG ---
Test Reason : Blood Pressure : / mmHG Vent. Rate : 064 BPM Atrial Rate : 064 BPM P-R Int : 150 ms QRS Dur : 096 ms QT Int : 430 ms P-R-T Axes : 049 -01 040 degrees QTc Int : 443 ms NORMAL SINUS RHYTHM WITH SINUS ARRHYTHMIA NORMAL ECG WHEN COMPARED WITH ECG OF 22-MAR-2017 22:10, VENT. RATE HAS DECREASED BY 40 BPM Confirmed by MELECIO PERSON, ISABELLE ([id number]) on 04/16/2019 2:25:48 PM Referred By: Confirmed By:ISABELLE MAJANO MD
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
[2019-04-16 16:57] LABS: METHADONE, UR NEGATIVE ng/ml (CUTOFF=300); OPIATES, URI NEGATIVE ng/ml (CUTOFF=300); PHENCYCLIDINE,URINE NEGATIVE ng/ml (CUTOFF=25); URINE AMPHETAMINES NEGATIVE ng/ml (CUTOFF=500); URINE BARBITURATES NEGATIVE ng/ml (CUTOFF=200); URINE BENZODIAZEPINES NEGATIVE ng/ml (CUTOFF=200)
[2019-04-16 17:01] LABS: COCAINE, UR POSITIVE ng/ml (CUTOFF=300)
[2019-04-16] MEDS ORDERED: chlordiazePOXIDE HCL 25 MG CAPSULE PO ONE (17:45)
[2019-04-16] MEDS: MUPIROCIN 2% TOPICAL OINTMENT FOR DECOLONIZATION NS SCH (21:49)
[2019-04-16] MEDS: BENZTROPINE MESYLATE 0.5 MG TABLET (FP) PO SCH (21:49)
[2019-04-16] MEDS: QUEtiapine FUMARATE 200 MG TABLET PO SCH (21:50)
[2019-04-16] MEDS: CHLORHEXIDINE GLUCONATE 4% CLEANSER FOR DECOLONIZATION TP SCH (21:50)
[2019-04-16] MEDS: ATORVASTATIN CA 40 MG TABLET (FP) PO SCH (21:50)
[2019-04-16] MEDS: QUEtiapine FUMARATE 100 MG TABLET (FP) PO SCH (21:53)
[2019-04-16] MEDS ORDERED: QUEtiapine FUMARATE 400 MG TABLET PO SCH (22:00)
[2019-04-17] MEDS: OCTREOTIDE ACETATE 200 MCG, OCTREOTIDE ACETATE 1,000 MCG in DEXTROSE 5%-WATER - 496 ML IVPB SCH (04:53)
[2019-04-17] MEDS ORDERED: chlordiazePOXIDE 5 MG CAPSULE PO SCH (05:00)
[2019-04-17 08:57] LABS: BASO % 0.4 % (0-2.0); EOS % 2.8 % (0-4.5); HEMATOCRIT 42.3 % (35.4-49); HEMOGLOBIN 14.6 GM/dL (11.7-16.9); LYMPH % 48.8 % (8-40); MCH 33.1 pg (25.7-33.7); MCHC 34.6 g/dl (32.0-35.9); MEAN CELL VOLUME 95.8 fl (80-96); PLATELET COUNT 278 K/MM3 (134-434); RBC 4.42 M/mm3 (4.00-5.60); RDW 13.3 % (11.9-15.9)
[2019-04-17 09:28] LABS: ALBUMIN 3.6 g/dl (3.4-5.0); BILIRUBIN,TOTAL 0.7 mg/dL (0.2-1); BLOOD UREA NITROGEN 7.1 mg/dL (7-18); CALCIUM 8.8 mg/dL (8.5-10.1); CREATININE 0.9 mg/dL (0.55-1.3); MAGNESIUM 2.1 mg/dL (1.8-2.4); POTASSIUM 3.7 mmol/L (3.5-5.1); TOT PROT 6.5 g/dl (6.4-8.2)
[2019-04-17] MEDS ORDERED: PT OWN MED DRAWER 7, Y5N ONE ×2 (09:43→21:48)
[2019-04-17] MEDS: MUPIROCIN 2% TOPICAL OINTMENT FOR DECOLONIZATION NS SCH ×2 (09:47→21:22)
--- NOTE | 2019-04-17 10:13 | PN.GI ---
GI Progress Note Subjective: No overt bleeding States that he does not want EGD, wants to eat and is ready to start detox. - Objective Vital Signs: Vital Signs Temperature 98 F 04/17/19 06:00 Pulse Rate 49 L 04/17/19 08:00 Respiratory Rate 13 04/17/19 08:00 Blood Pressure 119/77 04/17/19 08:00 O2 Sat by Pulse Oximetry (%) 98 04/17/19 09:00 Constitutional: Calm Eyes: No: Sclera Icterus Cardiovascular: Yes: Regular Rate and Rhythm Respiratory: Yes: CTA Bilaterally ...Auscultate: Yes: Normoactive Bowel Sounds ...Palpate: Yes: Soft. No: Hepatomegaly, Splenomegaly, Tenderness Neurological: Yes: Alert Labs: CBC, BMP 04/17/19 08:37 04/17/19 08:01 INR, PTT INR 1.13 (0.83-1.09) H 04/16/19 07:25 Problem List - Problems (1) Melena Assessment/Plan: No overt bleeding. No dark BM's since Saturday Mr. Lockwood is refusing EGD at this time and wants to eat. I tried explained that the procedure would be to exclude varices, which could cause potentially severe bleeding down the line, particularly if anticoagulation is still required , however he did not want to listen. Advise: Advance diet Q 6 month abdominal US to screen for HCC Protonix 40mg daily D/C Octreotide Will sign off. Recall as needed Code(s): K92.1 - MELENA
[2019-04-17] MEDS: RILPIVIRINE HCL 25 MG TABLET PO SCH ×2 (11:09→11:54)
[2019-04-17] MEDS: PANTOPRAZOLE 40 MG TABLET PO SCH ×2 (11:09→11:54)
[2019-04-17] MEDS: CEFTRIAXONE 1 GM in DEXTROSE 5%-WATER - 50 ML IVPB SCH (11:09)
[2019-04-17] MEDS: DOLUTEGRAVIR SODIUM 50 MG TABLET (NON-FORMULARY) PO SCH ×2 (11:10→11:54)
--- NOTE | 2019-04-17 11:20 | PN ---
Teaching Attending Note Name of Resident: Irena Martinez ATTENDING PHYSICIAN STATEMENT I saw and evaluated the patient. I reviewed the resident's note and discussed the case with the resident. I agree with the resident's findings and plan as documented. SUBJECTIVE: Patient seen and examined in the ICU. No further bleeding. Denies abdominal pain, shortness of breath, chest pain. No CP or SOB. Refused EGD, despite risks and benefits being explained in detail. OBJECTIVE: Intake & Output 04/14/19 04/15/19 04/16/19 04/17/19 23:59 23:59 23:59 23:59 Intake Total 800 500 Output Total 450 950 Balance 350 -450 Weight 170 lb 176 lb 2.389 oz Last Vital Signs Temp Pulse Resp BP Pulse Ox 98 F 52 L 14 123/73 98 04/17/19 06:00 04/17/19 10:00 04/17/19 10:00 04/17/19 10:00 04/17/19 09:00 Active Medications Atorvastatin Calcium (Lipitor -) 40 mg PO [facility] Last Admin: 04/16/19 21:50 Dose: 40 mg Benztropine Mesylate (Cogentin -) 0.5 mg PO [facility] Last Admin: 04/16/19 21:49 Dose: 0.5 mg Chlorhexidine Gluconate (Hibiclens For Decolonization -) 1 applic TP [facility] Last Admin: 04/16/19 21:50 Dose: 1 applic Octreotide Acetate 200 mcg/Octreotide Acetate 1,000 mcg/Dextrose 500 mls @ 20.833 mls/hr IVPB ASDIR [facility] Last Admin: 04/17/19 04:53 Dose: Not Given Ceftriaxone Sodium 1 gm/ (Dextrose) 50 mls @ 100 mls/hr IVPB DAILY [facility] Last Admin: 04/17/19 11:09 Dose: Not Given Lorazepam (Ativan Injection -) 2 mg IVPUSH Q6H PRN PRN Reason: WITHDRAWAL(CONT SUBST) Mupirocin (Bactroban Ointment (For Decolonization) -) 1 applic NS BID [facility] Stop: 04/21/19 21:59 Last Admin: 04/17/19 09:47 Dose: 1 applic Pantoprazole Sodium (Protonix -) 40 mg PO DAILY [facility] Last Admin: 04/17/19 11:09 Dose: Not Given Quetiapine Fumarate (Seroquel -) 400 mg PO [facility] Last Admin: 04/16/19 21:50 Dose: 400 mg Quetiapine Fumarate (Seroquel -) 100 mg PO [facility] Last Admin: 04/16/19 21:53 Dose: 100 mg Gen: NAD at rest Heart: RRR Lung: decreased breath sounds at the bases Abd: soft, nontender Ext: no edema Laboratory Results - last 24 hr 04/16/19 04/16/19 04/16/19 12:51 14:46 16:55 WBC RBC Hgb Hct MCV MCH MCHC RDW Plt Count MPV Absolute Neuts (auto) Neutrophils % Lymphocytes % Monocytes % Eosinophils % Basophils % Nucleated RBC % Sodium Potassium Chloride Carbon Dioxide Anion Gap BUN Creatinine Est GFR (CKD-EPI)AfAm Est GFR (CKD-EPI)NonAf POC Glucometer 147 152 Random Glucose Calcium Phosphorus Magnesium Total Bilirubin AST ALT Alkaline Phosphatase Total Protein Albumin Opiates Screen Negative Methadone Screen Negative Barbiturate Screen Negative Phencyclidine Screen Negative Ur Amphetamines Screen Negative MDMA (Ecstasy) Screen Negative Benzodiazepines Screen Negative Cocaine Screen Positive A* U Marijuana (THC) Screen Negative 04/16/19 04/17/19 04/17/19 22:40 08:01 08:37 WBC 4.0 RBC 4.42 Hgb 14.6 Hct 42.3 MCV 95.8 MCH 33.1 MCHC 34.6 RDW 13.3 Plt Count 278 MPV 8.0 Absolute Neuts (auto) 1.4 L Neutrophils % 34.0 L D Lymphocytes % 48.8 H Monocytes % 14.0 H Eosinophils % 2.8 Basophils % 0.4 Nucleated RBC % 0 Sodium 140 Potassium 3.7 Chloride 109 H Carbon Dioxide 25 Anion Gap 6 L BUN 7.1 Creatinine 0.9 Est GFR (CKD-EPI)AfAm 111.83 Est GFR (CKD-EPI)NonAf 96.49 POC Glucometer 134 Random Glucose 139 H Calcium 8.8 Phosphorus 3.0 Magnesium 2.1 Total Bilirubin 0.7 AST 19 ALT 30 Alkaline Phosphatase 73 Total Protein 6.5 Albumin 3.6 Opiates Screen Methadone Screen Barbiturate Screen Phencyclidine Screen Ur Amphetamines Screen MDMA (Ecstasy) Screen Benzodiazepines Screen Cocaine Screen U Marijuana (THC) Screen ASSESSMENT AND PLAN: GI bleed h/o PE on anticoagulation HIV Polysubstance Abuse Asthma Bipolar Disorder Schizophrenia Hyperlipidemia - Patient refused EGD - PPI - monitor H/H - PO per GI - monitor for withdrawal - obtain records regarding history of PE, will need to address risks/benefits of anticoagulation with evidence of varices - DVT prophylaxis - Floor Dr Aldana
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
[2019-04-17] MEDS ORDERED: chlordiazePOXIDE HCL 25 MG CAPSULE ONE (16:17)
[2019-04-17] MEDS ORDERED: chlordiazePOXIDE HCL 25 MG CAPSULE PO ONE (16:45)
[2019-04-17] MEDS: QUEtiapine FUMARATE 100 MG TABLET (FP) PO SCH (21:13)
[2019-04-17] MEDS: QUEtiapine FUMARATE 200 MG TABLET PO SCH (21:14)
[2019-04-17] MEDS: ATORVASTATIN CA 40 MG TABLET (FP) PO SCH (21:14)
[2019-04-17] MEDS: BENZTROPINE MESYLATE 0.5 MG TABLET (FP) PO SCH (21:14)
[2019-04-17] MEDS: CHLORHEXIDINE GLUCONATE 4% CLEANSER FOR DECOLONIZATION TP SCH (21:14)
[2019-04-18] MEDS: ACETAMINOPHEN 325 MG TABLET (FP) PO PRN ×2 (02:36→11:38)
[2019-04-18] MEDS ORDERED: chlordiazePOXIDE HCL 10 MG CAPSULE PO SCH (05:00)
[2019-04-18] MEDS ORDERED: PT OWN MED DRAWER 7, Y5N ONE ×2 (09:12→21:06)
[2019-04-18] MEDS: RILPIVIRINE HCL 25 MG TABLET PO SCH (09:20)
[2019-04-18] MEDS: DOLUTEGRAVIR SODIUM 50 MG TABLET (NON-FORMULARY) PO SCH (09:20)
[2019-04-18] MEDS: PANTOPRAZOLE 40 MG TABLET PO SCH (09:20)
[2019-04-18] MEDS: MUPIROCIN 2% TOPICAL OINTMENT FOR DECOLONIZATION NS SCH ×2 (09:23→21:09)
[2019-04-18] MEDS ORDERED: CEFTRIAXONE 1 GM in DEXTROSE 5%-WATER - 50 ML IVPB SCH (09:24)
[2019-04-18] MEDS ORDERED: DEXTROSE 5%-WATER - 50 ML IVPB ONE (10:53)
[2019-04-18] MEDS ORDERED: cefTRIAXone SODIUM 1 GM VIAL ONE (10:53)
--- NOTE | 2019-04-18 14:37 | PN ---
Progress Note (short form) - Note Progress Note: PULM/CCM Pt seen & Examined in the ICU. CA+OX3, No O2, NAD, No further dark tarry stool. Hgb stable 14.5 --> 14.6. Active Medications Acetaminophen (Tylenol -) 650 mg PO Q6H PRN PRN Reason: Fever Or Pain Last Admin: 04/18/19 11:38 Dose: 650 mg Atorvastatin Calcium (Lipitor -) 40 mg PO [facility] Last Admin: 04/17/19 21:14 Dose: 40 mg Benztropine Mesylate (Cogentin -) 0.5 mg PO [facility] Last Admin: 04/17/19 21:14 Dose: 0.5 mg Chlorhexidine Gluconate (Hibiclens For Decolonization -) 1 applic TP [facility] Last Admin: 04/17/19 21:14 Dose: 1 applic Ceftriaxone Sodium 1 gm/ (Dextrose) 50 mls @ 100 mls/hr IVPB DAILY [facility] Last Admin: 04/18/19 10:55 Dose: 100 mls/hr Lorazepam (Ativan Injection -) 2 mg IVPUSH Q6H PRN PRN Reason: WITHDRAWAL(CONT SUBST) Mupirocin (Bactroban Ointment (For Decolonization) -) 1 applic NS BID [facility] Stop: 04/21/19 21:59 Last Admin: 04/18/19 09:23 Dose: Not Given Pantoprazole Sodium (Protonix -) 40 mg PO DAILY [facility] Last Admin: 04/18/19 09:20 Dose: 40 mg Quetiapine Fumarate (Seroquel -) 400 mg PO [facility] Last Admin: 04/17/19 21:14 Dose: 400 mg Quetiapine Fumarate (Seroquel -) 100 mg PO [facility] Last Admin: 04/17/19 21:13 Dose: 100 mg Vital Signs Period Temp Pulse Resp BP Sys/Meza Pulse Ox Last 24 Hr 97.4 F-98.1 F 56-80 13-22 87-113/58-82 98-98 Intake & Output 04/15/19 04/16/19 04/17/19 04/18/19 23:59 23:59 23:59 23:59 Intake Total 800 2103 Output Total 450 3050 Balance 350 -947 Weight 77.111 kg 79.9 kg 79.832 kg GEN: Well nourished 53 y/o man, NAD, CA+OX3 HEENT: NCAT, PERRL, an-icteric PULM: CTAB CV: nml S1 S2, RR, unable to appreciate any G/M/R ABD: +BS, S/S N/T N/D X4Q EXT: + Pulses, WWP X4, (-) edema SKIN: No obvious rashes, lesions, or ulcers CBC, BMP 04/17/19 08:37 04/17/19 08:01 RECENT STUDIES TO NOTE: CXR 04/16: Clear (My Read). CTAP & CT CHEST W/ 04/15: 1. Mild to moderate COPD with groundglass opacity within the lingula. Six-month CT follow-up recommended. 2. Probable small varices about the distal esophagus with no evidence of active bleeding. 3. Mild diffuse fatty infiltration of the liver. 4. No evidence of acute pathology within the abdomen or pelvis. ASSESS: GI bleed h/o PE on anticoagulation HIV Polysubstance Abuse Asthma Bipolar Disorder Schizophrenia Hyperlipidemia PLAN: - Patient refused EGD - PPI - Trend CBC - PO per GI - monitor for withdrawal - Records regarding PE remain pending --> will need to address risks/benefits of anticoagulation w/ e/o varices - DVT prophylaxis - Transfer to [facility] ICU PULM/CCM [id number]
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
[2019-04-18] MEDS ORDERED: chlordiazePOXIDE HCL 10 MG CAPSULE PO PRN ×3 (17:49→22:25)
[2019-04-18] MEDS ORDERED: chlordiazePOXIDE HCL 25 MG CAPSULE PO ONE (17:49)
[2019-04-18] MEDS ORDERED: chlordiazePOXIDE HCL 25 MG CAPSULE PO SCH (21:00)
[2019-04-18] MEDS: QUEtiapine FUMARATE 100 MG TABLET (FP) PO SCH (21:04)
[2019-04-18] MEDS: ATORVASTATIN CA 40 MG TABLET (FP) PO SCH (21:04)
[2019-04-18] MEDS: CHLORHEXIDINE GLUCONATE 4% CLEANSER FOR DECOLONIZATION TP SCH (21:08)
[2019-04-18] MEDS: BENZTROPINE MESYLATE 0.5 MG TABLET (FP) PO SCH (21:08)
[2019-04-18] MEDS: QUEtiapine FUMARATE 200 MG TABLET PO SCH (21:17)
[2019-04-18] MEDS ORDERED: ACETAMINOPHEN 325 MG TABLET (FP) PO PRN (22:25)
[2019-04-19] MEDS ORDERED: chlordiazePOXIDE HCL 10 MG CAPSULE PO ONE (05:00)
[2019-04-19] MEDS: chlordiazePOXIDE HCL 25 MG CAPSULE PO SCH ×2 (05:48→13:35)
[2019-04-19 08:10] LABS: BLOOD UREA NITROGEN 17.3 mg/dL (7-18); POTASSIUM 3.5 mmol/L (3.5-5.1)
[2019-04-19 08:23] LABS: HEMATOCRIT 39.9 % (35.4-49); HEMOGLOBIN 13.9 GM/dL (11.7-16.9); MCHC 34.9 g/dl (32.0-35.9); MEAN CELL VOLUME 94.8 fl (80-96); MEAN PLT VOLUME 8.2 fl (7.5-11.1); PLATELET COUNT 246 K/MM3 (134-434); RDW 13.4 % (11.9-15.9); WHITE BLOOD COUNT 3.6 K/mm3 (4.0-10.0)
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
[2019-04-19] MEDS ORDERED: FOLIC ACID 1 MG TABLET (FP) PO SCH (10:00)
[2019-04-19] MEDS ORDERED: THIAMINE HCL 100 MG TABLET (FP) PO SCH (10:00)
[2019-04-19] MEDS ORDERED: MUPIROCIN 2% TOPICAL OINTMENT FOR DECOLONIZATION NS SCH (10:00)
[2019-04-19] MEDS ORDERED: MULTIVITAMINS THER W-MINERALS COMBO TABLET (FP) PO SCH (10:00)
[2019-04-19] MEDS: FOLIC ACID 1 MG TABLET (FP) PO SCH (10:46)
[2019-04-19] MEDS: PANTOPRAZOLE 40 MG TABLET PO SCH (10:46)
[2019-04-19] MEDS: MULTIVITAMINS THER W-MINERALS COMBO TABLET (FP) PO SCH (10:46)
[2019-04-19] MEDS: THIAMINE HCL 100 MG TABLET (FP) PO SCH (10:46)
[2019-04-19] MEDS ORDERED: PT OWN MED DRAWER 7, Y5N ONE ×2 (10:47→20:30)
[2019-04-19] MEDS: RILPIVIRINE HCL 25 MG TABLET PO SCH (10:48)
[2019-04-19] MEDS: DOLUTEGRAVIR SODIUM 50 MG TABLET (NON-FORMULARY) PO SCH (10:49)
[2019-04-19] MEDS ORDERED: QUEtiapine FUMARATE 200 MG TABLET PO SCH (22:00)
[2019-04-19] MEDS ORDERED: BENZTROPINE MESYLATE 0.5 MG TABLET (FP) PO SCH (22:00)
[2019-04-19] MEDS ORDERED: CHLORHEXIDINE GLUCONATE 4% CLEANSER FOR DECOLONIZATION TP SCH (22:00)
[2019-04-19] MEDS ORDERED: QUEtiapine FUMARATE 100 MG TABLET (FP) PO SCH (22:00)
[2019-04-19] MEDS ORDERED: ATORVASTATIN CA 40 MG TABLET (FP) PO SCH (22:00)
[2019-04-20] MEDS ORDERED: chlordiazePOXIDE 5 MG CAPSULE PO SCH (05:00)
[2019-04-20] MEDS: chlordiazePOXIDE 5 MG CAPSULE PO SCH ×2 (05:40→12:43)
[2019-04-20] MEDS: FOLIC ACID 1 MG TABLET (FP) PO SCH (10:16)
[2019-04-20] MEDS: PANTOPRAZOLE 40 MG TABLET PO SCH (10:16)
[2019-04-20] MEDS: MULTIVITAMINS THER W-MINERALS COMBO TABLET (FP) PO SCH (10:16)
[2019-04-20] MEDS: DOLUTEGRAVIR SODIUM 50 MG TABLET (NON-FORMULARY) PO SCH (10:18)
[2019-04-20] MEDS: RILPIVIRINE HCL 25 MG TABLET PO SCH (10:18)
[2019-04-20] MEDS: THIAMINE HCL 100 MG TABLET (FP) PO SCH (10:18)
[2019-04-20 15:18] VITALS: BP 109/64; PULSE 89; TEMP 98
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
[2019-04-21] MEDS ORDERED: chlordiazePOXIDE HCL 10 MG CAPSULE PO PRN ×2
[2019-04-21] MEDS ORDERED: chlordiazePOXIDE HCL 10 MG CAPSULE PO SCH ×2 (05:00)
[2019-04-22] MEDS ORDERED: chlordiazePOXIDE HCL 10 MG CAPSULE PO ONE ×2 (05:00)
== END 2019-04-20 18:16 | disposition other institution (70) | DRG 254 ==
LOC: JER 19:48 → JERBED 04-16 02:17 → JICU 04-16 09:54 → J8W 04-18 21:23
PROVIDERS: ADMIT Internal Medicine; ATTEND Internal Medicine
DX: K92.1 Melena (principal); I85.00 Esophageal varices without bleeding; R10.13 Epigastric pain; F10.239 Alcohol dependence with withdrawal, unspecified; T51.0X4A Toxic effect of ethanol, undetermined, initial encounter; F14.10 Cocaine abuse, uncomplicated; K76.0 Fatty (change of) liver, not elsewhere classified; F31.9 Bipolar disorder, unspecified; J45.909 Unspecified asthma, uncomplicated; F20.9 Schizophrenia, unspecified; Z21 Asymptomatic human immunodeficiency virus [HIV] infection status; Z86.711 Personal history of pulmonary embolism; Z87.11 Personal history of peptic ulcer disease; Z87.891 Personal history of nicotine dependence
CPT/HCPCS: 36415; 71045-TC-FY; 71260-TC; 74177-TC; 80048; 80053; 80307; 82272; 82550; 82553; 82962; 83690; 83735; 84100; 84484; 85025; 85027; 85610; 85730; 86850; 86900; 86901; 93005; 93010; 99284-25; J0131; J7030; Q9967

== ENCOUNTER 2019-04-20 17:51 | Inpatient (IN) | payer OTHER ==
[2019-04-20 18:53] VITALS: BMI 27.4
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
[2019-04-20] MEDS ORDERED: MENTHOL/PHENOL 1 EACH UD MM PRN (19:47)
[2019-04-20] MEDS ORDERED: ACETAMINOPHEN 325 MG TABLET (FP) PO PRN (19:47)
[2019-04-20] MEDS ORDERED: hydrOXYzine PAMOATE 25 MG CAPSULE (FP) PO PRN (19:47)
[2019-04-20] MEDS ORDERED: IBUPROFEN 400 MG TABLET (FP) PO PRN (19:47)
[2019-04-20] MEDS ORDERED: BISMUTH SUBSALICYLATE 524 MG/30 ML UD PO PRN (19:47)
[2019-04-20] MEDS ORDERED: chlordiazePOXIDE HCL 10 MG CAPSULE PO PRN (19:47)
[2019-04-20] MEDS ORDERED: METHOCARBAMOL 500 MG TABLET PO PRN (19:47)
[2019-04-20] MEDS ORDERED: MAGNESIUM HYDROX 2400MG/30ML ORAL SUSPENSION 30 ML CUP PO PRN (19:47)
[2019-04-20] MEDS ORDERED: MAGNESIUM CITRATE 300 ML BOTTLE PO PRN (19:47)
[2019-04-20] MEDS ORDERED: MELATONIN 5 MG TABLETS PO PRN (19:47)
[2019-04-20] MEDS ORDERED: MAG HYDROX/AL HYDROX/SIMETH 30 ML UNIT-DOSE CUP PO PRN (19:47)
[2019-04-20] MEDS ORDERED: ALBUTEROL SO4 HFA INHALER IH PRN (19:50)
[2019-04-20] MEDS ORDERED: valACYclovir HCL 500 MG TABLET (FP) PO PRN (19:50)
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
[2019-04-20] MEDS ORDERED: QUEtiapine FUMARATE 100 MG TABLET (FP) ONE (21:05)
[2019-04-20] MEDS ORDERED: QUEtiapine FUMARATE 200 MG TABLET ONE (21:05)
[2019-04-20] MEDS: QUETIAPINE FUMARATE PO SCH (21:14)
[2019-04-20] MEDS: ATORVASTATIN CA 40 MG TABLET (FP) PO SCH (21:14)
[2019-04-20] MEDS: THIAMINE HCL 100 MG TABLET (FP) PO SCH (21:14)
[2019-04-20] MEDS: ACETAMINOPHEN 325 MG TABLET (FP) PO PRN (21:15)
[2019-04-20] MEDS ORDERED: QUEtiapine FUMARATE 200 MG TABLET PO SCH (22:00)
[2019-04-20] MEDS ORDERED: chlordiazePOXIDE 5 MG CAPSULE PO SCH (22:00)
[2019-04-20] MEDS: BENZTROPINE MESYLATE 0.5 MG TABLET (FP) PO SCH (23:34)
[2019-04-21] MEDS: chlordiazePOXIDE HCL 10 MG CAPSULE PO SCH ×3 (05:12→22:15)
[2019-04-21] MEDS ORDERED: CITALOPRAM HYDROBROMIDE 20 MG TABLET PO SCH (10:00)
[2019-04-21] MEDS ORDERED: PATIENT'S OWN MEDICATION (NON-FORMULARY) (Dolutegravir/Rilpivirine [Juluca 50-25 Mg Tablet PO SCH (10:00)
[2019-04-21] MEDS ORDERED: THIAMINE HCL 100 MG TABLET (FP) PO SCH (10:00)
[2019-04-21] MEDS: DOCUSATE SODIUM 100 MG CAPSULE (FP) PO SCH (10:22)
[2019-04-21] MEDS: RILPIVIRINE HCL 25 MG TABLET PO SCH (10:23)
[2019-04-21] MEDS: PANTOPRAZOLE 40 MG TABLET PO SCH (10:23)
[2019-04-21] MEDS: PRENATAL VITAMINS W/ FOLIC ACID TABLET (FP) PO SCH (10:23)
[2019-04-21] MEDS: DOLUTEGRAVIR SODIUM 50 MG TABLET (NON-FORMULARY) PO SCH (10:24)
[2019-04-21 10:39] LABS: HEMATOCRIT 39.1 % (35.4-49); MCH 33.9 pg (25.7-33.7); MCHC 35.8 g/dl (32.0-35.9); MEAN CELL VOLUME 94.8 fl (80-96); MEAN PLT VOLUME 9.1 fl (7.5-11.1); PLATELET COUNT 228 K/MM3 (134-434); RBC 4.13 M/mm3 (4.00-5.60); RDW 13.7 % (11.9-15.9); WHITE BLOOD COUNT 5.2 K/mm3 (4.0-10.0)
[2019-04-21 11:04] LABS: ALBUMIN 3.6 g/dl (3.4-5.0); BILIRUBIN,TOTAL 0.7 mg/dL (0.2-1); BLOOD UREA NITROGEN 17.1 mg/dL (7-18); CALCIUM 9.3 mg/dL (8.5-10.1); POTASSIUM 3.7 mmol/L (3.5-5.1); TOT PROT 6.6 g/dl (6.4-8.2)
--- NOTE | 2019-04-21 11:41 | PN ---
S CIWA - CIWA Score Nausea/Vomitin-No Nausea/No Vomiting Muscle Tremors: 2 Anxiety: 0-No Anxiety, at Ease Agitation: 0-Normal Activity Paroxysmal Sweats: 1-Minimal Palms Moist Orientation: 0-Oriented Tacttile Disturbances: 0-None Auditory Disturbances: 0-None Visual Disturbances: 1-Very Mild Sensitivity Headache: 0-None Present CIWA-Ar Total Score: 4 [facility] Progress Note (SOAP) Subjective: 53 years old male admitted on 04/20/19 for alcohol withdrawal sx management treating with librium detox regiment last alcohol drinking was 04/14/19 came to [facility] with tarry stool transferred to ER for rule out internal bleeding from 04/15 to 04/20 return to [facility] on 04/20/19 for alcohol detox patient prefers to go to inpatient alcohol rehab case discussed with school community relations coordinator that 04/22/19 may possible rehab bed available Objective: 04/21/19 11:46 Vital Signs Temperature 96.9 F L 04/21/19 08:34 Pulse Rate 98 H 04/21/19 08:34 Respiratory Rate 18 04/21/19 08:34 Blood Pressure 122/69 04/21/19 08:34 O2 Sat by Pulse Oximetry (%) Laboratory Last Values WBC 5.2 K/mm3 (4.0-10.0) 04/21/19 07:45 RBC 4.13 M/mm3 (4.00-5.60) 04/21/19 07:45 Hgb 14.0 GM/dL (11.7-16.9) 04/21/19 07:45 Hct 39.1 % (35.4-49) 04/21/19 07:45 MCV 94.8 fl (80-96) 04/21/19 07:45 MCH 33.9 pg (25.7-33.7) H 04/21/19 07:45 MCHC 35.8 g/dl (32.0-35.9) 04/21/19 07:45 RDW 13.7 % (11.9-15.9) 04/21/19 07:45 Plt Count 228 K/MM3 (134-434) 04/21/19 07:45 MPV 9.1 fl (7.5-11.1) D 04/21/19 07:45 Sodium 139 mmol/L (136-145) 04/21/19 07:45 Potassium 3.7 mmol/L (3.5-5.1) 04/21/19 07:45 Chloride 105 mmol/L (98-107) 04/21/19 07:45 Carbon Dioxide 27 mmol/L (21-32) 04/21/19 07:45 Anion Gap 7 MMOL/L (8-16) L 04/21/19 07:45 BUN 17.1 mg/dL (7-18) 04/21/19 07:45 Creatinine 1.0 mg/dL (0.55-1.3) 04/21/19 07:45 Est GFR (CKD-EPI)AfAm 98.46 04/21/19 07:45 Est GFR (CKD-EPI)NonAf 84.95 04/21/19 07:45 Random Glucose 106 mg/dL (74-106) 04/21/19 07:45 Calcium 9.3 mg/dL (8.5-10.1) 04/21/19 07:45 Total Bilirubin 0.7 mg/dL (0.2-1) 04/21/19 07:45 AST 15 U/L (15-37) 04/21/19 07:45 ALT 28 U/L (13-61) 04/21/19 07:45 Alkaline Phosphatase 69 U/L (45-117) 04/21/19 07:45 Total Protein 6.6 g/dl (6.4-8.2) 04/21/19 07:45 Albumin 3.6 g/dl (3.4-5.0) 04/21/19 07:45 lab noted Assessment: 04/21/19 11:46 alcohol withdrawal Plan: librium regiment
[2019-04-21] MEDS: FOLIC ACID 1 MG TABLET (FP) PO SCH (11:50)
--- NOTE | 2019-04-21 18:12 | PN ---
[facility] Progress Note Note: Psychiatry Attending's note : Met with the patient at his request. Reason : Patient is anxious about not getting a bed at [facility]. Mr Lockwood expresses motivation for transition to rehabilitation. In the meantime, he is noted as clear, coherent and goal-directed. Active, cooperative with staff, assertive. Good historian. Cognitively intact. Adherent to his medications. No complaints of adverse effects. Steady gait. Ambulatory. Records revisited. Patient is already known to [facility]. Noted regimen of seroquel + cogentin + citalopram. These medications are verified. Confirmed by scripts from [facility]'s psychiatrist, Dr Webb. Dated 03/26/19. Well tolerated. No complaint of dizziness. No sedation. Patient alert, fully oriented and mobile on the unit. Detoxification in progress. Patient reports feeling much better. Not suicidal or homicidal. Awaits bed at [facility] (rehabilitation unit). Side effects/benefits of these medications : discussed with patient. Verbal consent given to MD. Patient agrees with plan of care. Mr Lockwood reports that he has been on seroquel 100 mg/day + 500 mg/hs for years. Good tolerability. Baseline mental status. Continue seroquel 500 mg po hs + cogentin 0.5 mg po hs (as initiated at [facility]).
[2019-04-21] MEDS ORDERED: QUEtiapine FUMARATE 200 MG TABLET ONE (21:44)
[2019-04-21] MEDS ORDERED: QUEtiapine FUMARATE 100 MG TABLET (FP) ONE (21:44)
[2019-04-21] MEDS: BENZTROPINE MESYLATE 0.5 MG TABLET (FP) PO SCH (22:15)
[2019-04-21] MEDS: QUETIAPINE FUMARATE PO SCH (22:15)
[2019-04-21] MEDS: THIAMINE HCL 100 MG TABLET (FP) PO SCH (22:15)
[2019-04-21] MEDS: ATORVASTATIN CA 40 MG TABLET (FP) PO SCH (22:15)
[2019-04-21] MEDS: ACETAMINOPHEN 325 MG TABLET (FP) PO PRN (22:16)
[2019-04-22] MEDS ORDERED: chlordiazePOXIDE HCL 10 MG CAPSULE PO ONE (05:00)
[2019-04-22] MEDS: ACETAMINOPHEN 325 MG TABLET (FP) PO PRN (06:49)
[2019-04-22] MEDS: PRENATAL VITAMINS W/ FOLIC ACID TABLET (FP) PO SCH (10:43)
[2019-04-22] MEDS: DOCUSATE SODIUM 100 MG CAPSULE (FP) PO SCH (10:44)
[2019-04-22] MEDS: DOLUTEGRAVIR SODIUM 50 MG TABLET (NON-FORMULARY) PO SCH (10:44)
[2019-04-22] MEDS: PANTOPRAZOLE 40 MG TABLET PO SCH (10:44)
--- NOTE | 2019-04-22 11:55 | DS ---
[facility] Detox Discharge Summary Admission Date: 04/20/19 Discharge Date: 04/22/19 - History Present History: Alcohol Dependence Additional Comments: 53 years old male admitted on 04/20 for alcohol withdrawal sx management treated with librium detox regiment last drank alcohol 04/14/19 rule out internal bleeding at the acute medical facility discharge on 04/20/19 to chemical dependent facility aftercare not available on 04/21/19 patient can be safely discharged to inpatient chemical rehab today at [facility] seen by psychiatrist while in detox resume corrine early patient is alert oriented x 3 respiratory clear lungs bilaterally on auscultation abdomen soft round no rebound tenderness denies constipation denies diarrhea extremities full range of motion Pertinent Past History: time for discharge: 26 minutes - Physical Exam Results Vital Signs: Vital Signs Temperature 96.0 F L 04/22/19 09:00 Pulse Rate 53 L 04/22/19 09:00 Respiratory Rate 18 04/22/19 09:00 Blood Pressure 118/84 04/22/19 09:00 O2 Sat by Pulse Oximetry (%) Pertinent Admission Physical Exam Findings: alcohol withdrawal Laboratory Last Values WBC 5.2 K/mm3 (4.0-10.0) 04/21/19 07:45 RBC 4.13 M/mm3 (4.00-5.60) 04/21/19 07:45 Hgb 14.0 GM/dL (11.7-16.9) 04/21/19 07:45 Hct 39.1 % (35.4-49) 04/21/19 07:45 MCV 94.8 fl (80-96) 04/21/19 07:45 MCH 33.9 pg (25.7-33.7) H 04/21/19 07:45 MCHC 35.8 g/dl (32.0-35.9) 04/21/19 07:45 RDW 13.7 % (11.9-15.9) 04/21/19 07:45 Plt Count 228 K/MM3 (134-434) 04/21/19 07:45 MPV 9.1 fl (7.5-11.1) D 04/21/19 07:45 Sodium 139 mmol/L (136-145) 04/21/19 07:45 Potassium 3.7 mmol/L (3.5-5.1) 04/21/19 07:45 Chloride 105 mmol/L (98-107) 04/21/19 07:45 Carbon Dioxide 27 mmol/L (21-32) 04/21/19 07:45 Anion Gap 7 MMOL/L (8-16) L 04/21/19 07:45 BUN 17.1 mg/dL (7-18) 04/21/19 07:45 Creatinine 1.0 mg/dL (0.55-1.3) 04/21/19 07:45 Est GFR (CKD-EPI)AfAm 98.46 04/21/19 07:45 Est GFR (CKD-EPI)NonAf 84.95 04/21/19 07:45 Random Glucose 106 mg/dL (74-106) 04/21/19 07:45 Calcium 9.3 mg/dL (8.5-10.1) 04/21/19 07:45 Total Bilirubin 0.7 mg/dL (0.2-1) 04/21/19 07:45 AST 15 U/L (15-37) 04/21/19 07:45 ALT 28 U/L (13-61) 04/21/19 07:45 Alkaline Phosphatase 69 U/L (45-117) 04/21/19 07:45 Total Protein 6.6 g/dl (6.4-8.2) 04/21/19 07:45 Albumin 3.6 g/dl (3.4-5.0) 04/21/19 07:45 RPR Titer Nonreactive (NONREACTIVE) 04/21/19 07:45 lab noted - Treatment Hospital Course: Detox Protocol Followed, Detoxed Safely, Responded well, Discharged Condition Good, Rehab Referral Accepted Patient has Accepted a Rehab Referral to: [facility] - Medication Discharge Medications: Ambulatory Orders Albuterol Sulfate [Proventil Hfa] 6.7 gm IH Q4H PRN 04/15/19 Atorvastatin Calcium 40 mg PO DAILY 04/15/19 Benztropine Mesylate 0.5 mg PO HS 04/15/19 Citalopram Hydrobromide [Celexa -] 20 mg PO DAILY 04/15/19 Dolutegravir/Rilpivirine [Juluca 50-25 mg Tablet] 1 each PO DAILY 04/15/19 Ketoprofen 50 mg PO BID 04/15/19 Quetiapine Fumarate [Seroquel -] 100 mg PO AM 04/15/19 Valacyclovir HCl [Valtrex -] 500 mg PO BID PRN 04/15/19 Chlordiazepoxide [Librium -] 15 mg PO Q8H capsule MDD 15 04/20/19 Docusate Sodium [Colace] 100 mg PO DAILY #10 capsule 04/20/19 Folic Acid - 1 mg PO DAILY tablet 04/20/19 Pantoprazole Sodium [Protonix -] 40 mg PO DAILY tablet.ec 04/20/19 Quetiapine Fumarate [Seroquel -] 500 mg PO HS 04/20/19 Thiamine HCl [Vitamin B1 -] 100 mg PO DAILY tablet 04/20/19 - Diagnosis (1) Esophageal varices Current Visit: Yes Status: Resolved Qualifiers: Esophageal varices type: idiopathic Esophageal varices bleeding: without bleeding Qualified Code(s): I85.00 - Esophageal varices without bleeding (2) Alcohol dependence with uncomplicated withdrawal Current Visit: Yes Status: Acute (3) Asthma Current Visit: Yes Status: Chronic Qualifiers: Asthma severity: mild Asthma persistence: intermittent Asthma complication type: with status asthmaticus Qualified Code(s): J45.22 - Mild intermittent asthma with status asthmaticus (4) HIV (human immunodeficiency virus infection) Current Visit: Yes Status: Chronic Qualifiers: HIV symptom status: asymptomatic Qualified Code(s): Z21 - Asymptomatic human immunodeficiency virus [HIV] infection status (5) Nicotine dependence Current Visit: Yes Status: Acute Qualifiers: Nicotine product type: cigarettes Substance use status: in withdrawal Qualified Code(s): F17.213 - Nicotine dependence, cigarettes, with withdrawal (6) Schizophrenia Current Visit: Yes Status: Suspected Qualifiers: Schizophrenia type: unspecified Qualified Code(s): F20.9 - Schizophrenia, unspecified (7) Tardive dyskinesia Current Visit: Yes Status: Chronic - AMA Did Patient Leave Against Medical Advice: No CIWA Score - CIWA Score Nausea/Vomitin-No Nausea/No Vomiting Muscle Tremors: 2 Anxiety: 0-No Anxiety, at Ease Agitation: 0-Normal Activity Paroxysmal Sweats: No Perspiration Orientation: 0-Oriented Tacttile Disturbances: 0-None Auditory Disturbances: 0-None Visual Disturbances: 0-None Headache: 0-None Present CIWA-Ar Total Score: 2
[2019-04-22 13:25] VITALS: BP 110/69; PULSE 89; TEMP 97.1
[2019-04-22] MEDS: FOLIC ACID 1 MG TABLET (FP) PO SCH (14:24)
[2019-04-22] MEDS: RILPIVIRINE HCL 25 MG TABLET PO SCH (14:25)
[2019-04-22] MEDS ORDERED: BENZTROPINE MESYLATE 1 MG TABLET PO SCH (22:00)
== END 2019-04-22 03:15 | disposition other institution (70) | DRG 775 ==
LOC: YASAS 17:51 → Y3N 20:08
PROVIDERS: ADMIT Allergy & Immunology; ATTEND Allergy & Immunology
PROC: HZ2ZZZZ Detoxification Services for Substance Abuse Treatment (ICD-10-PCS; principal; 2019-04-20)
DX: F10.230 Alcohol dependence with withdrawal, uncomplicated (principal); F17.210 Nicotine dependence, cigarettes, uncomplicated; F20.9 Schizophrenia, unspecified; Z21 Asymptomatic human immunodeficiency virus [HIV] infection status; I85.00 Esophageal varices without bleeding; G24.01 Drug induced subacute dyskinesia; J45.22 Mild intermittent asthma with status asthmaticus; I25.2 Old myocardial infarction; Z86.69 Personal history of other diseases of the nervous system and sense organs; Z86.711 Personal history of pulmonary embolism; Z79.01 Long term (current) use of anticoagulants; Z91.018 Allergy to other foods
CPT/HCPCS: 36415; 80053; 85027; 86593

== ENCOUNTER 2019-04-22 15:42 | Inpatient (IN) | payer OTHER ==
--- NOTE | 2019-04-22 15:03 | HP ---
[facility] Rehab Assess/Revision - Admission History Admitted to Rehab from: [facility] Date of Admission to Rehab: 04/22/19 - Findings Detox History & Physical reviewed: Yes Concur with findings: Yes Comments/Additional Findings: transferred from detox to rehab admission as per protocol Inpatient Rehab Admission - Rehab Decision to Admit Inpatient rehab admission?: Yes - Initial Determination Are CD services needed?: Yes Free of communicable disease: Yes Not in need of hospitalization: Yes - Rehab Admission Criteria Previous failed treatment: Yes Poor recovery environment: Yes Comorbidities: Yes Lacks judgement: Yes Patient is meeting Inpatient Rehab admission criteria:: Yes
[~2019-04-22 15:42] MED LIST: ALBUTEROL SO4 HFA INHALER IH PRN; LOPERAMIDE HCL 2 MG CAPSULE PO PRN; MAG HYDROX/AL HYDROX/SIMETH 30 ML UNIT-DOSE CUP PO PRN; MAGNESIUM CITRATE 300 ML BOTTLE PO PRN; MAGNESIUM HYDROX 2400MG/30ML ORAL SUSPENSION 30 ML CUP PO PRN; MENTHOL/PHENOL 1 EACH UD MM PRN; P-EPHED 60MG/TRIPROLIDI 2.5MG TABLET PO PRN; guaiFENesin 200 MG/10 ML 10 ML UNIT-DOSE CUPS PO PRN
--- NOTE | 2019-04-22 15:55 | HP ---
[facility] Rehab Assess/Revision - Admission History Admitted to Rehab from: [facility] Date of Admission to Rehab: 04/22/19 - Vital signs Vital Signs: Vital Signs Period Temp Pulse Resp BP Sys/Meza Pulse Ox Last 24 Hr 97.8 F 84 18 114/79 - Findings Detox History & Physical reviewed: Yes Concur with findings: Yes Comments/Additional Findings: Orders reviewed, labs reviewed, previous admissions reviewed. Inpatient Rehab Admission - Rehab Decision to Admit Inpatient rehab admission?: Yes - Initial Determination Are CD services needed?: Yes Free of communicable disease: Yes Not in need of hospitalization: Yes - Rehab Admission Criteria Previous failed treatment: Yes Poor recovery environment: Yes Comorbidities: Yes Lacks judgement: Yes Patient is meeting Inpatient Rehab admission criteria:: Yes
[2019-04-22] MEDS: IBUPROFEN 400 MG TABLET (FP) PO PRN (16:54)
[2019-04-22] MEDS ORDERED: QUEtiapine FUMARATE 200 MG TABLET ONE (21:26)
[2019-04-22] MEDS: MELATONIN 5 MG TABLETS PO PRN (21:26)
[2019-04-22] MEDS: THIAMINE HCL 100 MG TABLET (FP) PO SCH (21:26)
[2019-04-22] MEDS ORDERED: QUEtiapine FUMARATE 300 MG TABLET ONE (21:26)
[2019-04-22] MEDS: QUETIAPINE FUMARATE 300 MG, QUETIAPINE FUMARATE 200 MG PO SCH (21:27)
[2019-04-22] MEDS: ACETAMINOPHEN 325 MG TABLET (FP) PO PRN (21:28)
[2019-04-22] MEDS: ATORVASTATIN CA 40 MG TABLET (FP) PO SCH (21:28)
[2019-04-22] MEDS ORDERED: BENZTROPINE MESYLATE 1 MG TABLET PO SCH (22:00)
[2019-04-22] MEDS ORDERED: QUEtiapine FUMARATE 200 MG TABLET PO SCH (22:00)
[2019-04-23] MEDS: FAMOTIDINE 40 MG TABLET PO SCH ×2 (01:12→09:39)
[2019-04-23] MEDS: RILPIVIRINE HCL 25 MG TABLET PO SCH (06:28)
[2019-04-23] MEDS: DOLUTEGRAVIR SODIUM 50 MG TABLET (NON-FORMULARY) PO SCH (06:28)
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
[2019-04-23] MEDS: PRENATAL VITAMINS W/ FOLIC ACID TABLET (FP) PO SCH (09:39)
[2019-04-23] MEDS: DOCUSATE SODIUM 100 MG CAPSULE (FP) PO SCH (09:39)
[2019-04-23] MEDS: IBUPROFEN 400 MG TABLET (FP) PO PRN (09:39)
[2019-04-23] MEDS: FOLIC ACID 1 MG TABLET (FP) PO SCH (09:39)
[2019-04-23] MEDS ORDERED: BENZTROPINE MESYLATE 0.5 MG TABLET (FP) PO SCH (10:15)
[2019-04-23] MEDS: TOLNAFTATE 1% CREAM 15 GM TUBE TP SCH ×2 (10:30→21:16)
[2019-04-23] MEDS: CITALOPRAM HYDROBROMIDE 20 MG TABLET PO SCH (10:30)
[2019-04-23] MEDS: BENZTROPINE MESYLATE 1 MG TABLET PO SCH ×2 (13:01→21:16)
[2019-04-23] MEDS ORDERED: QUEtiapine FUMARATE 100 MG TABLET (FP) PO ONE (13:30)
[2019-04-23] MEDS ORDERED: QUEtiapine FUMARATE 200 MG TABLET ONE (19:10)
[2019-04-23] MEDS ORDERED: QUEtiapine FUMARATE 300 MG TABLET ONE (19:10)
[2019-04-23] MEDS: MELATONIN 5 MG TABLETS PO PRN (21:15)
[2019-04-23] MEDS: QUETIAPINE FUMARATE 300 MG, QUETIAPINE FUMARATE 200 MG PO SCH (21:16)
[2019-04-23] MEDS: THIAMINE HCL 100 MG TABLET (FP) PO SCH (21:16)
[2019-04-23] MEDS: ATORVASTATIN CA 40 MG TABLET (FP) PO SCH (21:16)
[2019-04-24] MEDS: DOLUTEGRAVIR SODIUM 50 MG TABLET (NON-FORMULARY) PO SCH (06:24)
[2019-04-24] MEDS: QUEtiapine FUMARATE 100 MG TABLET (FP) PO SCH (06:24)
[2019-04-24] MEDS: RILPIVIRINE HCL 25 MG TABLET PO SCH (06:24)
[2019-04-24] MEDS ORDERED: PT OWN MED DRAWER 7, Y5N ONE (08:43)
[2019-04-24] MEDS: FOLIC ACID 1 MG TABLET (FP) PO SCH (09:45)
[2019-04-24] MEDS: CITALOPRAM HYDROBROMIDE 20 MG TABLET PO SCH (09:45)
[2019-04-24] MEDS: PRENATAL VITAMINS W/ FOLIC ACID TABLET (FP) PO SCH (09:45)
[2019-04-24] MEDS: BENZTROPINE MESYLATE 1 MG TABLET PO SCH ×2 (09:46→21:24)
[2019-04-24] MEDS: DOCUSATE SODIUM 100 MG CAPSULE (FP) PO SCH (09:46)
[2019-04-24] MEDS: FAMOTIDINE 40 MG TABLET PO SCH (09:46)
[2019-04-24] MEDS: TOLNAFTATE 1% CREAM 15 GM TUBE TP SCH ×2 (10:18→21:24)
[2019-04-24] MEDS ORDERED: NALTREXONE MICROSPHERES (VIVITROL) 380 MG DISP.SYRIN IM ONE ×2 (12:53→14:15)
--- NOTE | 2019-04-24 13:53 | PN ---
S CIWA - CIWA Score Nausea/Vomitin-No Nausea/No Vomiting Muscle Tremors: None Anxiety: 1-Mildly Anxious Agitation: 0-Normal Activity Paroxysmal Sweats: No Perspiration Orientation: 0-Oriented Tacttile Disturbances: 2-Mild Itch/Numbness/Burn Auditory Disturbances: 0-None Visual Disturbances: 0-None Headache: 0-None Present CIWA-Ar Total Score: 3 [facility] Progress Note (SOAP) Subjective: Patient is a 53 year old male with PMH of alcohol dependence, Hx of DVT and esophageal varices. He was admitted to [address] on 04/22/2019. Letter received from [facility] verifying patient is on Vivitrol MAT. Letter states patient was scheduled to have injection on 04/15/2019 but did not as he was referred to inpatient at [facility]. At that time, patient was sent to [facility] for evaluation of GI bleeding. CT completed and patient dx with esophageal varices. Patient discharged from [facility] 04/20/19 and patient returned to [facility]. Patient is to resume Vivitrol MAT today. Objective: 04/24/19 13:58 Vital Signs (72 hours) 04/22/19 04/23/19 04/23/19 15:48 03:31 06:49 Temperature 97.8 F 98.4 F Pulse Rate 84 86 Respiratory 18 18 18 Rate Blood Pressure 114/79 136/62 04/24/19 04/24/19 04/24/19 00:21 03:27 07:14 Temperature 98.0 F Pulse Rate 89 Respiratory 18 18 18 Rate Blood Pressure 117/54 L Urine tox + BZO (detox) PE alert and oriented x 3 skin warm and dry +perrla, eoms intact car s1s2 resp cta bl ext full rom, amb ad eleazar c/o numbness and burning sensation to feet Assessment: 04/24/19 14:06 Alcohol dependence Vivitrol MAT Plan: Patient's labs reviewed and LFTS stable. Urine tox + BZO only. Vivitrol dose, use, side effects and potential site reactions reviewed and discussed with patient. Patient consented to treatment and verbalized understanding of all information provided. Vivitrol 380mg IM x one ordered.
[2019-04-24] MEDS: GABAPENTIN 100 MG CAPSULE PO SCH ×2 (14:21→21:23)
[2019-04-24] MEDS ORDERED: QUEtiapine FUMARATE 300 MG TABLET ONE (18:38)
[2019-04-24] MEDS ORDERED: QUEtiapine FUMARATE 200 MG TABLET ONE (18:38)
[2019-04-24] MEDS: MELATONIN 5 MG TABLETS PO PRN (21:23)
[2019-04-24] MEDS: THIAMINE HCL 100 MG TABLET (FP) PO SCH (21:23)
[2019-04-24] MEDS: ATORVASTATIN CA 40 MG TABLET (FP) PO SCH (21:23)
[2019-04-24] MEDS: QUETIAPINE FUMARATE 300 MG, QUETIAPINE FUMARATE 200 MG PO SCH (21:24)
[2019-04-24] MEDS: ACETAMINOPHEN 325 MG TABLET (FP) PO PRN (21:25)
[2019-04-25] MEDS: GABAPENTIN 100 MG CAPSULE PO SCH ×3 (06:08→21:21)
[2019-04-25] MEDS: QUEtiapine FUMARATE 100 MG TABLET (FP) PO SCH (06:08)
[2019-04-25] MEDS: RILPIVIRINE HCL 25 MG TABLET PO SCH (06:08)
[2019-04-25] MEDS: DOLUTEGRAVIR SODIUM 50 MG TABLET (NON-FORMULARY) PO SCH (06:08)
[2019-04-25] MEDS: ACETAMINOPHEN 325 MG TABLET (FP) PO PRN (08:28)
[2019-04-25] MEDS: FOLIC ACID 1 MG TABLET (FP) PO SCH (10:37)
[2019-04-25] MEDS: CITALOPRAM HYDROBROMIDE 20 MG TABLET PO SCH (10:37)
[2019-04-25] MEDS: DOCUSATE SODIUM 100 MG CAPSULE (FP) PO SCH (10:37)
[2019-04-25] MEDS: FAMOTIDINE 40 MG TABLET PO SCH (10:37)
[2019-04-25] MEDS: PRENATAL VITAMINS W/ FOLIC ACID TABLET (FP) PO SCH (10:37)
[2019-04-25] MEDS: BENZTROPINE MESYLATE 1 MG TABLET PO SCH ×2 (10:38→21:21)
[2019-04-25] MEDS: TOLNAFTATE 1% CREAM 15 GM TUBE TP SCH ×2 (10:39→21:24)
[2019-04-25] MEDS ORDERED: QUEtiapine FUMARATE 200 MG TABLET ONE (19:42)
[2019-04-25] MEDS ORDERED: QUEtiapine FUMARATE 300 MG TABLET ONE (19:42)
[2019-04-25] MEDS: THIAMINE HCL 100 MG TABLET (FP) PO SCH (21:22)
[2019-04-25] MEDS: QUETIAPINE FUMARATE 300 MG, QUETIAPINE FUMARATE 200 MG PO SCH (21:24)
[2019-04-25] MEDS: MELATONIN 5 MG TABLETS PO PRN (21:24)
[2019-04-25] MEDS: ATORVASTATIN CA 40 MG TABLET (FP) PO SCH (21:24)
[2019-04-25 22:16] LABS: COCAINE, UR NEGATIVE ng/ml (CUTOFF=300); METHADONE, UR NEGATIVE ng/ml (CUTOFF=300); OPIATES, URI NEGATIVE ng/ml (CUTOFF=300); PHENCYCLIDINE,URINE NEGATIVE ng/ml (CUTOFF=25); URINE AMPHETAMINES NEGATIVE ng/ml (CUTOFF=500); URINE BARBITURATES NEGATIVE ng/ml (CUTOFF=200)
[2019-04-25 22:38] LABS: URINE BENZODIAZEPINES POSITIVE ng/ml (CUTOFF=200)
[2019-04-26] MEDS: ACETAMINOPHEN 325 MG TABLET (FP) PO PRN (02:13)
[2019-04-26] MEDS: GABAPENTIN 100 MG CAPSULE PO SCH ×3 (06:06→21:22)
[2019-04-26] MEDS: RILPIVIRINE HCL 25 MG TABLET PO SCH (06:06)
[2019-04-26] MEDS: QUEtiapine FUMARATE 100 MG TABLET (FP) PO SCH (06:06)
[2019-04-26] MEDS: DOLUTEGRAVIR SODIUM 50 MG TABLET (NON-FORMULARY) PO SCH (06:06)
[2019-04-26] MEDS: BENZTROPINE MESYLATE 1 MG TABLET PO SCH ×2 (09:42→21:21)
[2019-04-26] MEDS: PRENATAL VITAMINS W/ FOLIC ACID TABLET (FP) PO SCH (09:42)
[2019-04-26] MEDS: FOLIC ACID 1 MG TABLET (FP) PO SCH (09:42)
[2019-04-26] MEDS: TOLNAFTATE 1% CREAM 15 GM TUBE TP SCH ×2 (09:42→21:40)
[2019-04-26] MEDS: CITALOPRAM HYDROBROMIDE 20 MG TABLET PO SCH (09:42)
[2019-04-26] MEDS: FAMOTIDINE 40 MG TABLET PO SCH (09:42)
[2019-04-26] MEDS: DOCUSATE SODIUM 100 MG CAPSULE (FP) PO SCH (09:42)
[2019-04-26] MEDS ORDERED: QUEtiapine FUMARATE 200 MG TABLET ONE (19:42)
[2019-04-26] MEDS ORDERED: QUEtiapine FUMARATE 300 MG TABLET ONE (19:43)
[2019-04-26] MEDS: ATORVASTATIN CA 40 MG TABLET (FP) PO SCH (21:22)
[2019-04-26] MEDS: THIAMINE HCL 100 MG TABLET (FP) PO SCH (21:22)
[2019-04-26] MEDS: MELATONIN 5 MG TABLETS PO PRN (21:22)
[2019-04-26] MEDS: QUETIAPINE FUMARATE 300 MG, QUETIAPINE FUMARATE 200 MG PO SCH (21:22)
[2019-04-27] MEDS: RILPIVIRINE HCL 25 MG TABLET PO SCH (06:08)
[2019-04-27] MEDS: GABAPENTIN 100 MG CAPSULE PO SCH ×3 (06:08→21:05)
[2019-04-27] MEDS: DOLUTEGRAVIR SODIUM 50 MG TABLET (NON-FORMULARY) PO SCH (06:08)
[2019-04-27] MEDS: QUEtiapine FUMARATE 100 MG TABLET (FP) PO SCH (06:08)
[2019-04-27] MEDS: PRENATAL VITAMINS W/ FOLIC ACID TABLET (FP) PO SCH (09:29)
[2019-04-27] MEDS: FOLIC ACID 1 MG TABLET (FP) PO SCH (09:29)
[2019-04-27] MEDS: FAMOTIDINE 40 MG TABLET PO SCH (09:29)
[2019-04-27] MEDS: CITALOPRAM HYDROBROMIDE 20 MG TABLET PO SCH (09:29)
[2019-04-27] MEDS: DOCUSATE SODIUM 100 MG CAPSULE (FP) PO SCH (09:29)
[2019-04-27] MEDS: TOLNAFTATE 1% CREAM 15 GM TUBE TP SCH ×2 (09:29→21:06)
[2019-04-27] MEDS: BENZTROPINE MESYLATE 1 MG TABLET PO SCH ×2 (09:29→21:05)
[2019-04-27] MEDS ORDERED: QUEtiapine FUMARATE 200 MG TABLET ONE (18:42)
[2019-04-27] MEDS ORDERED: QUEtiapine FUMARATE 300 MG TABLET ONE (18:42)
[2019-04-27] MEDS: MELATONIN 5 MG TABLETS PO PRN (21:05)
[2019-04-27] MEDS: QUETIAPINE FUMARATE 300 MG, QUETIAPINE FUMARATE 200 MG PO SCH (21:05)
[2019-04-27] MEDS: THIAMINE HCL 100 MG TABLET (FP) PO SCH (21:05)
[2019-04-27] MEDS: ATORVASTATIN CA 40 MG TABLET (FP) PO SCH (21:05)
[2019-04-28] MEDS: GABAPENTIN 100 MG CAPSULE PO SCH ×3 (06:09→21:21)
[2019-04-28] MEDS: QUEtiapine FUMARATE 100 MG TABLET (FP) PO SCH (06:09)
[2019-04-28] MEDS: RILPIVIRINE HCL 25 MG TABLET PO SCH (06:10)
[2019-04-28] MEDS: DOLUTEGRAVIR SODIUM 50 MG TABLET (NON-FORMULARY) PO SCH (06:10)
[2019-04-28] MEDS: PRENATAL VITAMINS W/ FOLIC ACID TABLET (FP) PO SCH (09:53)
[2019-04-28] MEDS: CITALOPRAM HYDROBROMIDE 20 MG TABLET PO SCH (09:53)
[2019-04-28] MEDS: DOCUSATE SODIUM 100 MG CAPSULE (FP) PO SCH (09:53)
[2019-04-28] MEDS: TOLNAFTATE 1% CREAM 15 GM TUBE TP SCH ×2 (09:53→21:23)
[2019-04-28] MEDS: FOLIC ACID 1 MG TABLET (FP) PO SCH (09:54)
[2019-04-28] MEDS: BENZTROPINE MESYLATE 1 MG TABLET PO SCH ×2 (09:54→21:22)
[2019-04-28] MEDS: FAMOTIDINE 40 MG TABLET PO SCH (09:54)
[2019-04-28] MEDS: METHOCARBAMOL 500 MG TABLET PO PRN ×2 (09:55→21:23)
[2019-04-28] MEDS ORDERED: QUEtiapine FUMARATE 200 MG TABLET ONE (18:54)
[2019-04-28] MEDS ORDERED: QUEtiapine FUMARATE 300 MG TABLET ONE (18:55)
[2019-04-28] MEDS: MELATONIN 5 MG TABLETS PO PRN (21:21)
[2019-04-28] MEDS: THIAMINE HCL 100 MG TABLET (FP) PO SCH (21:21)
[2019-04-28] MEDS: ATORVASTATIN CA 40 MG TABLET (FP) PO SCH (21:21)
[2019-04-28] MEDS: QUETIAPINE FUMARATE 300 MG, QUETIAPINE FUMARATE 200 MG PO SCH (21:22)
[2019-04-29] MEDS ORDERED: PT OWN MED DRAWER 7, Y5N ONE (03:23)
[2019-04-29] MEDS: QUEtiapine FUMARATE 100 MG TABLET (FP) PO SCH (06:17)
[2019-04-29] MEDS: RILPIVIRINE HCL 25 MG TABLET PO SCH (06:17)
[2019-04-29] MEDS: DOLUTEGRAVIR SODIUM 50 MG TABLET (NON-FORMULARY) PO SCH (06:17)
[2019-04-29] MEDS: GABAPENTIN 100 MG CAPSULE PO SCH ×3 (06:17→21:11)
[2019-04-29] MEDS: DOCUSATE SODIUM 100 MG CAPSULE (FP) PO SCH (09:35)
[2019-04-29] MEDS: PRENATAL VITAMINS W/ FOLIC ACID TABLET (FP) PO SCH (09:35)
[2019-04-29] MEDS: FOLIC ACID 1 MG TABLET (FP) PO SCH (09:35)
[2019-04-29] MEDS: CITALOPRAM HYDROBROMIDE 20 MG TABLET PO SCH (09:35)
[2019-04-29] MEDS: BENZTROPINE MESYLATE 1 MG TABLET PO SCH ×2 (09:36→21:11)
[2019-04-29] MEDS: METHOCARBAMOL 500 MG TABLET PO PRN ×2 (09:36→21:12)
[2019-04-29] MEDS: FAMOTIDINE 40 MG TABLET PO SCH (10:13)
[2019-04-29] MEDS: TOLNAFTATE 1% CREAM 15 GM TUBE TP SCH ×2 (10:13→21:13)
[2019-04-29] MEDS ORDERED: QUEtiapine FUMARATE 200 MG TABLET ONE (18:36)
[2019-04-29] MEDS ORDERED: QUEtiapine FUMARATE 300 MG TABLET ONE (18:36)
[2019-04-29] MEDS: THIAMINE HCL 100 MG TABLET (FP) PO SCH (21:11)
[2019-04-29] MEDS: ATORVASTATIN CA 40 MG TABLET (FP) PO SCH (21:11)
[2019-04-29] MEDS: QUETIAPINE FUMARATE 300 MG, QUETIAPINE FUMARATE 200 MG PO SCH (21:11)
[2019-04-29] MEDS: MELATONIN 5 MG TABLETS PO PRN (21:11)
[2019-04-30] MEDS: GABAPENTIN 100 MG CAPSULE PO SCH ×3 (06:22→21:47)
[2019-04-30] MEDS: QUEtiapine FUMARATE 100 MG TABLET (FP) PO SCH (06:22)
[2019-04-30] MEDS: DOLUTEGRAVIR SODIUM 50 MG TABLET (NON-FORMULARY) PO SCH (06:23)
[2019-04-30] MEDS: RILPIVIRINE HCL 25 MG TABLET PO SCH (06:23)
[2019-04-30] MEDS: PRENATAL VITAMINS W/ FOLIC ACID TABLET (FP) PO SCH (09:33)
[2019-04-30] MEDS: DOCUSATE SODIUM 100 MG CAPSULE (FP) PO SCH (09:33)
[2019-04-30] MEDS: CITALOPRAM HYDROBROMIDE 20 MG TABLET PO SCH (09:33)
[2019-04-30] MEDS: BENZTROPINE MESYLATE 1 MG TABLET PO SCH ×2 (09:33→21:45)
[2019-04-30] MEDS: FAMOTIDINE 40 MG TABLET PO SCH (09:34)
[2019-04-30] MEDS: FOLIC ACID 1 MG TABLET (FP) PO SCH (09:35)
[2019-04-30] MEDS ORDERED: PT OWN MED DRAWER 7, Y5N ONE (09:35)
[2019-04-30] MEDS: TOLNAFTATE 1% CREAM 15 GM TUBE TP SCH ×2 (09:36→23:15)
[2019-04-30] MEDS: METHOCARBAMOL 500 MG TABLET PO PRN ×2 (09:36→21:48)
[2019-04-30] MEDS ORDERED: QUEtiapine FUMARATE 200 MG TABLET ONE (20:27)
[2019-04-30] MEDS ORDERED: QUEtiapine FUMARATE 300 MG TABLET ONE (20:27)
[2019-04-30] MEDS: THIAMINE HCL 100 MG TABLET (FP) PO SCH (21:45)
[2019-04-30] MEDS: MELATONIN 5 MG TABLETS PO PRN (21:45)
[2019-04-30] MEDS: ATORVASTATIN CA 40 MG TABLET (FP) PO SCH (21:47)
[2019-04-30] MEDS: QUETIAPINE FUMARATE 300 MG, QUETIAPINE FUMARATE 200 MG PO SCH (21:49)
[2019-05-01] MEDS: RILPIVIRINE HCL 25 MG TABLET PO SCH (06:16)
[2019-05-01] MEDS: QUEtiapine FUMARATE 100 MG TABLET (FP) PO SCH (06:16)
[2019-05-01] MEDS: GABAPENTIN 100 MG CAPSULE PO SCH ×3 (06:16→21:06)
[2019-05-01] MEDS: DOLUTEGRAVIR SODIUM 50 MG TABLET (NON-FORMULARY) PO SCH (06:16)
[2019-05-01] MEDS: PRENATAL VITAMINS W/ FOLIC ACID TABLET (FP) PO SCH (09:49)
[2019-05-01] MEDS: CITALOPRAM HYDROBROMIDE 20 MG TABLET PO SCH (09:49)
[2019-05-01] MEDS: DOCUSATE SODIUM 100 MG CAPSULE (FP) PO SCH (09:49)
[2019-05-01] MEDS: FOLIC ACID 1 MG TABLET (FP) PO SCH (09:49)
[2019-05-01] MEDS: FAMOTIDINE 40 MG TABLET PO SCH (09:49)
[2019-05-01] MEDS: TOLNAFTATE 1% CREAM 15 GM TUBE TP SCH ×2 (09:51→21:07)
[2019-05-01] MEDS: BENZTROPINE MESYLATE 1 MG TABLET PO SCH ×2 (09:51→21:07)
[2019-05-01] MEDS: METHOCARBAMOL 500 MG TABLET PO PRN ×2 (09:51→21:07)
[2019-05-01] MEDS ORDERED: PT OWN MED DRAWER 7, Y5N ONE (09:51)
[2019-05-01] MEDS ORDERED: QUEtiapine FUMARATE 200 MG TABLET ONE (18:43)
[2019-05-01] MEDS ORDERED: QUEtiapine FUMARATE 300 MG TABLET ONE (18:44)
[2019-05-01] MEDS: QUETIAPINE FUMARATE 300 MG, QUETIAPINE FUMARATE 200 MG PO SCH (21:07)
[2019-05-01] MEDS: THIAMINE HCL 100 MG TABLET (FP) PO SCH (21:07)
[2019-05-01] MEDS: MELATONIN 5 MG TABLETS PO PRN (21:07)
[2019-05-01] MEDS: ATORVASTATIN CA 40 MG TABLET (FP) PO SCH (21:07)
[2019-05-02] MEDS: QUEtiapine FUMARATE 100 MG TABLET (FP) PO SCH (06:47)
[2019-05-02] MEDS: GABAPENTIN 100 MG CAPSULE PO SCH ×3 (06:47→21:26)
[2019-05-02] MEDS: DOLUTEGRAVIR SODIUM 50 MG TABLET (NON-FORMULARY) PO SCH (06:47)
[2019-05-02] MEDS: RILPIVIRINE HCL 25 MG TABLET PO SCH (06:47)
[2019-05-02] MEDS: METHOCARBAMOL 500 MG TABLET PO PRN ×2 (06:48→21:26)
[2019-05-02] MEDS: FAMOTIDINE 40 MG TABLET PO SCH (09:44)
[2019-05-02] MEDS: DOCUSATE SODIUM 100 MG CAPSULE (FP) PO SCH (09:44)
[2019-05-02] MEDS: BENZTROPINE MESYLATE 1 MG TABLET PO SCH ×2 (09:44→21:26)
[2019-05-02] MEDS: CITALOPRAM HYDROBROMIDE 20 MG TABLET PO SCH (09:44)
[2019-05-02] MEDS: FOLIC ACID 1 MG TABLET (FP) PO SCH (09:44)
[2019-05-02] MEDS: PRENATAL VITAMINS W/ FOLIC ACID TABLET (FP) PO SCH (09:44)
[2019-05-02] MEDS: TOLNAFTATE 1% CREAM 15 GM TUBE TP SCH ×2 (09:45→21:26)
[2019-05-02] MEDS ORDERED: QUEtiapine FUMARATE 300 MG TABLET ONE (18:47)
[2019-05-02] MEDS ORDERED: QUEtiapine FUMARATE 200 MG TABLET ONE (18:47)
[2019-05-02] MEDS: THIAMINE HCL 100 MG TABLET (FP) PO SCH (21:26)
[2019-05-02] MEDS: QUETIAPINE FUMARATE 300 MG, QUETIAPINE FUMARATE 200 MG PO SCH (21:26)
[2019-05-02] MEDS: ATORVASTATIN CA 40 MG TABLET (FP) PO SCH (21:26)
[2019-05-02] MEDS: MELATONIN 5 MG TABLETS PO PRN (21:26)
[2019-05-03] MEDS: RILPIVIRINE HCL 25 MG TABLET PO SCH (05:59)
[2019-05-03] MEDS: QUEtiapine FUMARATE 100 MG TABLET (FP) PO SCH (05:59)
[2019-05-03] MEDS: GABAPENTIN 100 MG CAPSULE PO SCH ×3 (05:59→21:03)
[2019-05-03] MEDS: DOLUTEGRAVIR SODIUM 50 MG TABLET (NON-FORMULARY) PO SCH (05:59)
[2019-05-03] MEDS: TOLNAFTATE 1% CREAM 15 GM TUBE TP SCH ×2 (09:55→21:04)
[2019-05-03] MEDS: BENZTROPINE MESYLATE 1 MG TABLET PO SCH ×2 (09:55→21:03)
[2019-05-03] MEDS: METHOCARBAMOL 500 MG TABLET PO PRN ×2 (09:55→21:04)
[2019-05-03] MEDS: DOCUSATE SODIUM 100 MG CAPSULE (FP) PO SCH (09:55)
[2019-05-03] MEDS: FOLIC ACID 1 MG TABLET (FP) PO SCH (09:55)
[2019-05-03] MEDS: FAMOTIDINE 40 MG TABLET PO SCH (09:55)
[2019-05-03] MEDS: PRENATAL VITAMINS W/ FOLIC ACID TABLET (FP) PO SCH (09:55)
[2019-05-03] MEDS: CITALOPRAM HYDROBROMIDE 20 MG TABLET PO SCH (09:55)
[2019-05-03] MEDS ORDERED: QUEtiapine FUMARATE 200 MG TABLET ONE (18:36)
[2019-05-03] MEDS ORDERED: QUEtiapine FUMARATE 300 MG TABLET ONE (18:37)
[2019-05-03] MEDS: THIAMINE HCL 100 MG TABLET (FP) PO SCH (21:03)
[2019-05-03] MEDS: ATORVASTATIN CA 40 MG TABLET (FP) PO SCH (21:03)
[2019-05-03] MEDS: MELATONIN 5 MG TABLETS PO PRN (21:03)
[2019-05-03] MEDS: QUETIAPINE FUMARATE 300 MG, QUETIAPINE FUMARATE 200 MG PO SCH (21:03)
[2019-05-04] MEDS: ACETAMINOPHEN 325 MG TABLET (FP) PO PRN (02:31)
[2019-05-04] MEDS: QUEtiapine FUMARATE 100 MG TABLET (FP) PO SCH (06:43)
[2019-05-04] MEDS: RILPIVIRINE HCL 25 MG TABLET PO SCH (06:43)
[2019-05-04] MEDS: GABAPENTIN 100 MG CAPSULE PO SCH ×3 (06:43→22:09)
[2019-05-04] MEDS: DOLUTEGRAVIR SODIUM 50 MG TABLET (NON-FORMULARY) PO SCH (06:43)
[2019-05-04] MEDS: TOLNAFTATE 1% CREAM 15 GM TUBE TP SCH ×2 (09:41→22:10)
[2019-05-04] MEDS: PRENATAL VITAMINS W/ FOLIC ACID TABLET (FP) PO SCH (09:41)
[2019-05-04] MEDS: CITALOPRAM HYDROBROMIDE 20 MG TABLET PO SCH (09:41)
[2019-05-04] MEDS: DOCUSATE SODIUM 100 MG CAPSULE (FP) PO SCH (09:41)
[2019-05-04] MEDS: BENZTROPINE MESYLATE 1 MG TABLET PO SCH ×2 (09:41→22:11)
[2019-05-04] MEDS: FOLIC ACID 1 MG TABLET (FP) PO SCH (09:41)
[2019-05-04] MEDS: FAMOTIDINE 40 MG TABLET PO SCH (09:41)
[2019-05-04] MEDS: METHOCARBAMOL 500 MG TABLET PO PRN ×3 (09:43→22:12)
[2019-05-04] MEDS ORDERED: QUEtiapine FUMARATE 300 MG TABLET ONE (20:13)
[2019-05-04] MEDS ORDERED: QUEtiapine FUMARATE 200 MG TABLET ONE (20:13)
[2019-05-04] MEDS: ATORVASTATIN CA 40 MG TABLET (FP) PO SCH (22:09)
[2019-05-04] MEDS: THIAMINE HCL 100 MG TABLET (FP) PO SCH (22:09)
[2019-05-04] MEDS: QUETIAPINE FUMARATE 300 MG, QUETIAPINE FUMARATE 200 MG PO SCH (22:10)
[2019-05-04] MEDS: MELATONIN 5 MG TABLETS PO PRN (22:12)
[2019-05-05] MEDS: ACETAMINOPHEN 325 MG TABLET (FP) PO PRN (04:47)
[2019-05-05] MEDS: RILPIVIRINE HCL 25 MG TABLET PO SCH (06:06)
[2019-05-05] MEDS: QUEtiapine FUMARATE 100 MG TABLET (FP) PO SCH (06:06)
[2019-05-05] MEDS: GABAPENTIN 100 MG CAPSULE PO SCH ×3 (06:06→21:11)
[2019-05-05] MEDS: DOLUTEGRAVIR SODIUM 50 MG TABLET (NON-FORMULARY) PO SCH (06:06)
[2019-05-05] MEDS: METHOCARBAMOL 500 MG TABLET PO PRN ×4 (06:06→21:11)
[2019-05-05] MEDS: DOCUSATE SODIUM 100 MG CAPSULE (FP) PO SCH (09:41)
[2019-05-05] MEDS: FOLIC ACID 1 MG TABLET (FP) PO SCH (09:41)
[2019-05-05] MEDS: CITALOPRAM HYDROBROMIDE 20 MG TABLET PO SCH (09:41)
[2019-05-05] MEDS: PRENATAL VITAMINS W/ FOLIC ACID TABLET (FP) PO SCH (09:41)
[2019-05-05] MEDS: FAMOTIDINE 40 MG TABLET PO SCH (09:41)
[2019-05-05] MEDS: BENZTROPINE MESYLATE 1 MG TABLET PO SCH ×2 (09:41→21:11)
[2019-05-05] MEDS: TOLNAFTATE 1% CREAM 15 GM TUBE TP SCH ×2 (10:01→21:12)
[2019-05-05] MEDS ORDERED: QUEtiapine FUMARATE 300 MG TABLET ONE (18:33)
[2019-05-05] MEDS ORDERED: QUEtiapine FUMARATE 200 MG TABLET ONE (18:33)
[2019-05-05] MEDS: MELATONIN 5 MG TABLETS PO PRN (21:11)
[2019-05-05] MEDS: ATORVASTATIN CA 40 MG TABLET (FP) PO SCH (21:11)
[2019-05-05] MEDS: THIAMINE HCL 100 MG TABLET (FP) PO SCH (21:11)
[2019-05-05] MEDS: QUETIAPINE FUMARATE 300 MG, QUETIAPINE FUMARATE 200 MG PO SCH (21:12)
[2019-05-06] MEDS: ACETAMINOPHEN 325 MG TABLET (FP) PO PRN (02:55)
[2019-05-06] MEDS: QUEtiapine FUMARATE 100 MG TABLET (FP) PO SCH (06:12)
[2019-05-06] MEDS: GABAPENTIN 100 MG CAPSULE PO SCH ×3 (06:12→21:28)
[2019-05-06] MEDS: DOLUTEGRAVIR SODIUM 50 MG TABLET (NON-FORMULARY) PO SCH (06:13)
[2019-05-06] MEDS: RILPIVIRINE HCL 25 MG TABLET PO SCH (06:13)
[2019-05-06] MEDS: METHOCARBAMOL 500 MG TABLET PO PRN ×3 (06:13→21:30)
[2019-05-06] MEDS ORDERED: PT OWN MED DRAWER 7, Y5N ONE (09:20)
[2019-05-06] MEDS: PRENATAL VITAMINS W/ FOLIC ACID TABLET (FP) PO SCH (10:43)
[2019-05-06] MEDS: CITALOPRAM HYDROBROMIDE 20 MG TABLET PO SCH (10:43)
[2019-05-06] MEDS: DOCUSATE SODIUM 100 MG CAPSULE (FP) PO SCH (10:43)
[2019-05-06] MEDS: FOLIC ACID 1 MG TABLET (FP) PO SCH (10:44)
[2019-05-06] MEDS: BENZTROPINE MESYLATE 1 MG TABLET PO SCH ×2 (10:44→21:28)
[2019-05-06] MEDS: FAMOTIDINE 40 MG TABLET PO SCH (10:44)
[2019-05-06] MEDS: TOLNAFTATE 1% CREAM 15 GM TUBE TP SCH ×2 (10:44→21:29)
[2019-05-06] MEDS: ATORVASTATIN CA 40 MG TABLET (FP) PO SCH (21:28)
[2019-05-06] MEDS: THIAMINE HCL 100 MG TABLET (FP) PO SCH (21:28)
[2019-05-06] MEDS: MELATONIN 5 MG TABLETS PO PRN (21:28)
[2019-05-06] MEDS: QUETIAPINE FUMARATE 300 MG, QUETIAPINE FUMARATE 200 MG PO SCH (21:29)
[2019-05-06] MEDS ORDERED: QUEtiapine FUMARATE 300 MG TABLET ONE (21:29)
[2019-05-06] MEDS ORDERED: QUEtiapine FUMARATE 200 MG TABLET ONE (21:29)
[2019-05-07] MEDS ORDERED: PT OWN MED DRAWER 7, Y5N ONE (03:25)
[2019-05-07] MEDS: GABAPENTIN 100 MG CAPSULE PO SCH ×3 (06:28→21:07)
[2019-05-07] MEDS: DOLUTEGRAVIR SODIUM 50 MG TABLET (NON-FORMULARY) PO SCH (06:28)
[2019-05-07] MEDS: QUEtiapine FUMARATE 100 MG TABLET (FP) PO SCH (06:28)
[2019-05-07] MEDS: RILPIVIRINE HCL 25 MG TABLET PO SCH (06:28)
[2019-05-07] MEDS: ACETAMINOPHEN 325 MG TABLET (FP) PO PRN ×2 (06:29→10:17)
[2019-05-07] MEDS: BENZTROPINE MESYLATE 1 MG TABLET PO SCH ×2 (10:15→21:07)
[2019-05-07] MEDS: CITALOPRAM HYDROBROMIDE 20 MG TABLET PO SCH (10:15)
[2019-05-07] MEDS: DOCUSATE SODIUM 100 MG CAPSULE (FP) PO SCH (10:15)
[2019-05-07] MEDS: PRENATAL VITAMINS W/ FOLIC ACID TABLET (FP) PO SCH (10:15)
[2019-05-07] MEDS: METHOCARBAMOL 500 MG TABLET PO PRN ×2 (10:15→21:07)
[2019-05-07] MEDS: FOLIC ACID 1 MG TABLET (FP) PO SCH (10:15)
[2019-05-07] MEDS: FAMOTIDINE 40 MG TABLET PO SCH (10:16)
[2019-05-07] MEDS: TOLNAFTATE 1% CREAM 15 GM TUBE TP SCH ×2 (10:16→21:08)
[2019-05-07] MEDS: AMMONIUM LACTATE 12% LOTION 225 GM BOTTLE TP PRN (13:50)
[2019-05-07] MEDS ORDERED: QUEtiapine FUMARATE 300 MG TABLET ONE (18:55)
[2019-05-07] MEDS ORDERED: QUEtiapine FUMARATE 200 MG TABLET ONE (18:55)
[2019-05-07] MEDS: MELATONIN 5 MG TABLETS PO PRN (21:07)
[2019-05-07] MEDS: ATORVASTATIN CA 40 MG TABLET (FP) PO SCH (21:07)
[2019-05-07] MEDS: THIAMINE HCL 100 MG TABLET (FP) PO SCH (21:07)
[2019-05-07] MEDS: QUETIAPINE FUMARATE 300 MG, QUETIAPINE FUMARATE 200 MG PO SCH (21:07)
[2019-05-08] MEDS: GABAPENTIN 100 MG CAPSULE PO SCH ×3 (06:25→21:21)
[2019-05-08] MEDS: RILPIVIRINE HCL 25 MG TABLET PO SCH (06:25)
[2019-05-08] MEDS: QUEtiapine FUMARATE 100 MG TABLET (FP) PO SCH (06:25)
[2019-05-08] MEDS: DOLUTEGRAVIR SODIUM 50 MG TABLET (NON-FORMULARY) PO SCH (06:25)
[2019-05-08] MEDS: ACETAMINOPHEN 325 MG TABLET (FP) PO PRN (06:26)
[2019-05-08] MEDS: PRENATAL VITAMINS W/ FOLIC ACID TABLET (FP) PO SCH (10:17)
[2019-05-08] MEDS: FAMOTIDINE 40 MG TABLET PO SCH (10:17)
[2019-05-08] MEDS: BENZTROPINE MESYLATE 1 MG TABLET PO SCH ×2 (10:17→21:22)
[2019-05-08] MEDS: FOLIC ACID 1 MG TABLET (FP) PO SCH (10:17)
[2019-05-08] MEDS: DOCUSATE SODIUM 100 MG CAPSULE (FP) PO SCH (10:17)
[2019-05-08] MEDS: CITALOPRAM HYDROBROMIDE 20 MG TABLET PO SCH (10:18)
[2019-05-08] MEDS: TOLNAFTATE 1% CREAM 15 GM TUBE TP SCH ×2 (10:19→21:22)
[2019-05-08] MEDS: METHOCARBAMOL 500 MG TABLET PO PRN ×3 (12:00→21:21)
[2019-05-08] MEDS ORDERED: QUEtiapine FUMARATE 300 MG TABLET ONE (19:09)
[2019-05-08] MEDS ORDERED: QUEtiapine FUMARATE 200 MG TABLET ONE (19:09)
[2019-05-08] MEDS: ATORVASTATIN CA 40 MG TABLET (FP) PO SCH (21:21)
[2019-05-08] MEDS: MELATONIN 5 MG TABLETS PO PRN (21:22)
[2019-05-08] MEDS: THIAMINE HCL 100 MG TABLET (FP) PO SCH (21:22)
[2019-05-08] MEDS: QUETIAPINE FUMARATE 300 MG, QUETIAPINE FUMARATE 200 MG PO SCH (21:22)
[2019-05-09] MEDS: ACETAMINOPHEN 325 MG TABLET (FP) PO PRN ×2 (01:45→06:15)
[2019-05-09] MEDS: GABAPENTIN 100 MG CAPSULE PO SCH ×3 (06:15→22:11)
[2019-05-09] MEDS: RILPIVIRINE HCL 25 MG TABLET PO SCH (06:15)
[2019-05-09] MEDS: METHOCARBAMOL 500 MG TABLET PO PRN ×4 (06:15→22:13)
[2019-05-09] MEDS: QUEtiapine FUMARATE 100 MG TABLET (FP) PO SCH (06:15)
[2019-05-09] MEDS: DOLUTEGRAVIR SODIUM 50 MG TABLET (NON-FORMULARY) PO SCH (06:15)
[2019-05-09] MEDS: FOLIC ACID 1 MG TABLET (FP) PO SCH (10:23)
[2019-05-09] MEDS: PRENATAL VITAMINS W/ FOLIC ACID TABLET (FP) PO SCH (10:23)
[2019-05-09] MEDS: FAMOTIDINE 40 MG TABLET PO SCH (10:23)
[2019-05-09] MEDS: CITALOPRAM HYDROBROMIDE 20 MG TABLET PO SCH (10:23)
[2019-05-09] MEDS: BENZTROPINE MESYLATE 1 MG TABLET PO SCH ×2 (10:23→22:10)
[2019-05-09] MEDS: DOCUSATE SODIUM 100 MG CAPSULE (FP) PO SCH (10:23)
[2019-05-09] MEDS: TOLNAFTATE 1% CREAM 15 GM TUBE TP SCH ×2 (10:32→22:12)
[2019-05-09] MEDS ORDERED: QUEtiapine FUMARATE 300 MG TABLET ONE (20:08)
[2019-05-09] MEDS ORDERED: PT OWN MED DRAWER 7, Y5N ONE ×2 (20:08→22:15)
[2019-05-09] MEDS ORDERED: QUEtiapine FUMARATE 200 MG TABLET ONE (20:08)
[2019-05-09] MEDS: QUETIAPINE FUMARATE 300 MG, QUETIAPINE FUMARATE 200 MG PO SCH (22:11)
[2019-05-09] MEDS: THIAMINE HCL 100 MG TABLET (FP) PO SCH (22:12)
[2019-05-09] MEDS: AMMONIUM LACTATE 12% LOTION 225 GM BOTTLE TP PRN (22:14)
[2019-05-09] MEDS: MELATONIN 5 MG TABLETS PO PRN (22:15)
[2019-05-09] MEDS: ATORVASTATIN CA 40 MG TABLET (FP) PO SCH (22:15)
[2019-05-10] MEDS: METHOCARBAMOL 500 MG TABLET PO PRN ×2 (06:02→21:45)
[2019-05-10] MEDS: ACETAMINOPHEN 325 MG TABLET (FP) PO PRN (06:02)
[2019-05-10] MEDS: RILPIVIRINE HCL 25 MG TABLET PO SCH (06:02)
[2019-05-10] MEDS: QUEtiapine FUMARATE 100 MG TABLET (FP) PO SCH (06:02)
[2019-05-10] MEDS: DOLUTEGRAVIR SODIUM 50 MG TABLET (NON-FORMULARY) PO SCH (06:02)
[2019-05-10] MEDS: GABAPENTIN 100 MG CAPSULE PO SCH ×3 (06:43→21:44)
[2019-05-10] MEDS: DOCUSATE SODIUM 100 MG CAPSULE (FP) PO SCH (10:41)
[2019-05-10] MEDS: FOLIC ACID 1 MG TABLET (FP) PO SCH (10:41)
[2019-05-10] MEDS: BENZTROPINE MESYLATE 1 MG TABLET PO SCH ×2 (10:41→21:43)
[2019-05-10] MEDS: CITALOPRAM HYDROBROMIDE 20 MG TABLET PO SCH (10:41)
[2019-05-10] MEDS: PRENATAL VITAMINS W/ FOLIC ACID TABLET (FP) PO SCH (10:41)
[2019-05-10] MEDS: FAMOTIDINE 40 MG TABLET PO SCH (10:42)
[2019-05-10] MEDS: TOLNAFTATE 1% CREAM 15 GM TUBE TP SCH ×2 (10:42→21:44)
[2019-05-10] MEDS ORDERED: QUEtiapine FUMARATE 200 MG TABLET ONE (21:04)
[2019-05-10] MEDS ORDERED: QUEtiapine FUMARATE 300 MG TABLET ONE (21:05)
[2019-05-10] MEDS: ATORVASTATIN CA 40 MG TABLET (FP) PO SCH (21:44)
[2019-05-10] MEDS: QUETIAPINE FUMARATE 300 MG, QUETIAPINE FUMARATE 200 MG PO SCH (21:44)
[2019-05-10] MEDS: THIAMINE HCL 100 MG TABLET (FP) PO SCH (21:44)
[2019-05-11] MEDS: QUEtiapine FUMARATE 100 MG TABLET (FP) PO SCH (06:34)
[2019-05-11] MEDS: GABAPENTIN 100 MG CAPSULE PO SCH ×3 (06:34→21:04)
[2019-05-11] MEDS: DOLUTEGRAVIR SODIUM 50 MG TABLET (NON-FORMULARY) PO SCH (06:35)
[2019-05-11] MEDS: RILPIVIRINE HCL 25 MG TABLET PO SCH (06:35)
[2019-05-11] MEDS: CITALOPRAM HYDROBROMIDE 20 MG TABLET PO SCH (09:35)
[2019-05-11] MEDS: FOLIC ACID 1 MG TABLET (FP) PO SCH (09:35)
[2019-05-11] MEDS: FAMOTIDINE 40 MG TABLET PO SCH (09:35)
[2019-05-11] MEDS: PRENATAL VITAMINS W/ FOLIC ACID TABLET (FP) PO SCH (09:35)
[2019-05-11] MEDS: DOCUSATE SODIUM 100 MG CAPSULE (FP) PO SCH (09:35)
[2019-05-11] MEDS: BENZTROPINE MESYLATE 1 MG TABLET PO SCH ×2 (09:35→21:05)
[2019-05-11] MEDS: TOLNAFTATE 1% CREAM 15 GM TUBE TP SCH ×2 (09:36→21:25)
[2019-05-11] MEDS: METHOCARBAMOL 500 MG TABLET PO PRN ×2 (09:37→21:04)
[2019-05-11] MEDS: AMMONIUM LACTATE 12% LOTION 225 GM BOTTLE TP PRN (09:39)
[2019-05-11] MEDS ORDERED: PT OWN MED DRAWER 7, Y5N ONE (09:39)
--- NOTE | 2019-05-11 10:31 | PN ---
[facility] Progress Note Note: Patient c/o headache. States taking APAP once. Mildly ineffective. Has Hx o GIB and unable to take Ibuprofen. Patient advised he has order for APAP 650mg po every 4 hours prn. Patient to continue with same treatment and encouraged to increase oral fluids. Monitor clinically. Laboratory Tests 04/25/19 18:30 Opiates Screen Negative Methadone Screen Negative Barbiturate Screen Negative Phencyclidine Screen Negative Ur Amphetamines Screen Negative MDMA (Ecstasy) Screen Negative Benzodiazepines Screen Positive A* Cocaine Screen Negative U Marijuana (THC) Screen Negative Vital Signs (72 hours) 05/09/19 05/09/19 05/09/19 00:20 03:49 06:44 Temperature 97.6 F Pulse Rate 83 Respiratory 18 18 18 Rate Blood Pressure 121/74 05/09/19 05/10/19 05/11/19 10:00 06:11 00:31 Temperature 97.6 F 97.9 F Pulse Rate 83 90 Respiratory 18 20 18 Rate Blood Pressure 121/74 123/83 05/11/19 05/11/19 03:31 07:51 Temperature 97.9 F Pulse Rate 90 Respiratory 18 18 Rate Blood Pressure 113/75
[2019-05-11] MEDS ORDERED: QUEtiapine FUMARATE 300 MG TABLET ONE (18:46)
[2019-05-11] MEDS ORDERED: QUEtiapine FUMARATE 200 MG TABLET ONE (18:46)
[2019-05-11] MEDS: THIAMINE HCL 100 MG TABLET (FP) PO SCH (21:05)
[2019-05-11] MEDS: QUETIAPINE FUMARATE 300 MG, QUETIAPINE FUMARATE 200 MG PO SCH (21:05)
[2019-05-11] MEDS: ATORVASTATIN CA 40 MG TABLET (FP) PO SCH (21:05)
[2019-05-11] MEDS: MELATONIN 5 MG TABLETS PO PRN (21:05)
[2019-05-12] MEDS: ACETAMINOPHEN 325 MG TABLET (FP) PO PRN (06:00)
[2019-05-12] MEDS: GABAPENTIN 100 MG CAPSULE PO SCH ×3 (06:00→21:30)
[2019-05-12] MEDS: DOLUTEGRAVIR SODIUM 50 MG TABLET (NON-FORMULARY) PO SCH (06:00)
[2019-05-12] MEDS: RILPIVIRINE HCL 25 MG TABLET PO SCH (06:00)
[2019-05-12] MEDS: QUEtiapine FUMARATE 100 MG TABLET (FP) PO SCH (06:00)
[2019-05-12] MEDS: METHOCARBAMOL 500 MG TABLET PO PRN ×3 (06:00→21:31)
[2019-05-12] MEDS ORDERED: PT OWN MED DRAWER 7, Y5N ONE (08:47)
[2019-05-12] MEDS: CITALOPRAM HYDROBROMIDE 20 MG TABLET PO SCH (09:50)
[2019-05-12] MEDS: BENZTROPINE MESYLATE 1 MG TABLET PO SCH ×2 (09:50→21:30)
[2019-05-12] MEDS: PRENATAL VITAMINS W/ FOLIC ACID TABLET (FP) PO SCH (09:51)
[2019-05-12] MEDS: FOLIC ACID 1 MG TABLET (FP) PO SCH (09:52)
[2019-05-12] MEDS: DOCUSATE SODIUM 100 MG CAPSULE (FP) PO SCH (09:52)
[2019-05-12] MEDS: TOLNAFTATE 1% CREAM 15 GM TUBE TP SCH ×2 (09:53→21:32)
[2019-05-12] MEDS: FAMOTIDINE 40 MG TABLET PO SCH (11:45)
[2019-05-12] MEDS ORDERED: QUEtiapine FUMARATE 200 MG TABLET ONE (21:30)
[2019-05-12] MEDS: ATORVASTATIN CA 40 MG TABLET (FP) PO SCH (21:30)
[2019-05-12] MEDS: MELATONIN 5 MG TABLETS PO PRN (21:30)
[2019-05-12] MEDS: THIAMINE HCL 100 MG TABLET (FP) PO SCH (21:30)
[2019-05-12] MEDS ORDERED: QUEtiapine FUMARATE 300 MG TABLET ONE (21:31)
[2019-05-12] MEDS: QUETIAPINE FUMARATE 300 MG, QUETIAPINE FUMARATE 200 MG PO SCH (21:31)
[2019-05-13] MEDS: ACETAMINOPHEN 325 MG TABLET (FP) PO PRN (05:12)
[2019-05-13] MEDS: DOLUTEGRAVIR SODIUM 50 MG TABLET (NON-FORMULARY) PO SCH (06:09)
[2019-05-13] MEDS: RILPIVIRINE HCL 25 MG TABLET PO SCH (06:09)
[2019-05-13] MEDS: GABAPENTIN 100 MG CAPSULE PO SCH ×3 (06:10→21:07)
[2019-05-13] MEDS: QUEtiapine FUMARATE 100 MG TABLET (FP) PO SCH (06:10)
[2019-05-13 06:25] VITALS: PULSE 93
[2019-05-13] MEDS: PRENATAL VITAMINS W/ FOLIC ACID TABLET (FP) PO SCH (10:36)
[2019-05-13] MEDS: FOLIC ACID 1 MG TABLET (FP) PO SCH (10:37)
[2019-05-13] MEDS: TOLNAFTATE 1% CREAM 15 GM TUBE TP SCH ×2 (10:37→21:08)
[2019-05-13] MEDS: CITALOPRAM HYDROBROMIDE 20 MG TABLET PO SCH (10:37)
[2019-05-13] MEDS: FAMOTIDINE 40 MG TABLET PO SCH (10:37)
[2019-05-13] MEDS: DOCUSATE SODIUM 100 MG CAPSULE (FP) PO SCH (10:37)
[2019-05-13] MEDS: BENZTROPINE MESYLATE 1 MG TABLET PO SCH ×2 (10:39→21:07)
[2019-05-13] MEDS: METHOCARBAMOL 500 MG TABLET PO PRN ×2 (14:33→21:06)
[2019-05-13] MEDS ORDERED: QUEtiapine FUMARATE 300 MG TABLET ONE (18:56)
[2019-05-13] MEDS ORDERED: QUEtiapine FUMARATE 200 MG TABLET ONE (18:56)
[2019-05-13] MEDS: ATORVASTATIN CA 40 MG TABLET (FP) PO SCH (21:07)
[2019-05-13] MEDS: THIAMINE HCL 100 MG TABLET (FP) PO SCH (21:07)
[2019-05-13] MEDS: QUETIAPINE FUMARATE 300 MG, QUETIAPINE FUMARATE 200 MG PO SCH (21:07)
[2019-05-13] MEDS: MELATONIN 5 MG TABLETS PO PRN (21:07)
[2019-05-14] MEDS: METHOCARBAMOL 500 MG TABLET PO PRN ×2 (05:55→10:26)
[2019-05-14] MEDS: ACETAMINOPHEN 325 MG TABLET (FP) PO PRN (05:55)
[2019-05-14] MEDS: DOLUTEGRAVIR SODIUM 50 MG TABLET (NON-FORMULARY) PO SCH (07:13)
[2019-05-14] MEDS: RILPIVIRINE HCL 25 MG TABLET PO SCH (07:13)
[2019-05-14] MEDS: QUEtiapine FUMARATE 100 MG TABLET (FP) PO SCH (07:14)
[2019-05-14] MEDS: GABAPENTIN 100 MG CAPSULE PO SCH ×3 (07:14→22:03)
[2019-05-14] MEDS: DOCUSATE SODIUM 100 MG CAPSULE (FP) PO SCH (10:24)
[2019-05-14] MEDS: FAMOTIDINE 40 MG TABLET PO SCH (10:24)
[2019-05-14] MEDS: FOLIC ACID 1 MG TABLET (FP) PO SCH (10:24)
[2019-05-14] MEDS: PRENATAL VITAMINS W/ FOLIC ACID TABLET (FP) PO SCH (10:24)
[2019-05-14] MEDS: CITALOPRAM HYDROBROMIDE 20 MG TABLET PO SCH (10:24)
[2019-05-14] MEDS: TOLNAFTATE 1% CREAM 15 GM TUBE TP SCH ×2 (10:27→22:03)
[2019-05-14] MEDS: BENZTROPINE MESYLATE 1 MG TABLET PO SCH ×2 (10:27→22:02)
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
[2019-05-14] MEDS ORDERED: QUEtiapine FUMARATE 200 MG TABLET ONE (20:36)
[2019-05-14] MEDS ORDERED: QUEtiapine FUMARATE 300 MG TABLET ONE (20:36)
[2019-05-14] MEDS: ATORVASTATIN CA 40 MG TABLET (FP) PO SCH (22:01)
[2019-05-14] MEDS: QUETIAPINE FUMARATE 300 MG, QUETIAPINE FUMARATE 200 MG PO SCH (22:02)
[2019-05-14] MEDS: THIAMINE HCL 100 MG TABLET (FP) PO SCH (22:04)
[2019-05-14] MEDS: MELATONIN 5 MG TABLETS PO PRN (22:04)
[2019-05-15] MEDS: GABAPENTIN 100 MG CAPSULE PO SCH (06:15)
[2019-05-15] MEDS: QUEtiapine FUMARATE 100 MG TABLET (FP) PO SCH (06:15)
[2019-05-15] MEDS: DOLUTEGRAVIR SODIUM 50 MG TABLET (NON-FORMULARY) PO SCH (06:15)
[2019-05-15] MEDS: RILPIVIRINE HCL 25 MG TABLET PO SCH (06:15)
[2019-05-15] MEDS: ACETAMINOPHEN 325 MG TABLET (FP) PO PRN (06:16)
[2019-05-15] MEDS: METHOCARBAMOL 500 MG TABLET PO PRN (06:16)
[2019-05-15 06:59] VITALS: BP 123/97; TEMP 97.9
== END 2019-05-15 07:25 | disposition home or self-care (01) | DRG 772 ==
LOC: YASAS 15:42 → Y3W 15:43
PROVIDERS: ADMIT Allergy & Immunology; ATTEND Allergy & Immunology
PROC: HZ42ZZZ Group Counseling for Substance Abuse Treatment, Cognitive-Behavioral (ICD-10-PCS; principal; 2019-04-22)
DX: F10.20 Alcohol dependence, uncomplicated (principal); F14.20 Cocaine dependence, uncomplicated; F12.20 Cannabis dependence, uncomplicated; F17.210 Nicotine dependence, cigarettes, uncomplicated; F19.282 Other psychoactive substance dependence with psychoactive substance-induced sleep disorder; F20.9 Schizophrenia, unspecified; F31.9 Bipolar disorder, unspecified; Z21 Asymptomatic human immunodeficiency virus [HIV] infection status; J45.22 Mild intermittent asthma with status asthmaticus; I25.10 Atherosclerotic heart disease of native coronary artery without angina pectoris; I25.2 Old myocardial infarction; E78.5 Hyperlipidemia, unspecified; R56.9 Unspecified convulsions; Z86.718 Personal history of other venous thrombosis and embolism; Z86.711 Personal history of pulmonary embolism; Z87.19 Personal history of other diseases of the digestive system; Z87.828 Personal history of other (healed) physical injury and trauma; Z98.890 Other specified postprocedural states; Z62.810 Personal history of physical and sexual abuse in childhood
CPT/HCPCS: 80307; J2315

== ENCOUNTER 2022-08-16 15:28 | Emergency (ER) | payer OTHER ==
[2022-08-16] MEDS ORDERED: SODIUM CHLORIDE 0.9% 500 ML INFUS.BAG IV ONE (15:43)
[2022-08-16] MEDS ORDERED: FAMOTIDINE 20 MG/50 ML IVPB 20 MG/50 ML MG IVPB ONE (15:43)
[2022-08-16] MEDS ORDERED: ACETAMINOPHEN 1000 MG/100 ML BAG IVPB ONE (15:43)
[2022-08-16 15:45] VITALS: RESP 19; BMI 29.0
[2022-08-16] MEDS ORDERED: LORazepam 2 MG/ML SDV VIAL IVPUSH ONE (16:21)
[2022-08-16] MEDS ORDERED: PANTOPRAZOLE SODIUM 40 MG VIAL IVPUSH ONE (16:28)
[2022-08-16] MEDS ORDERED: ONDANSETRON 4 MG/2 ML VIAL IVPUSH ONE (16:32)
[2022-08-16] MEDS ORDERED: ACETAMINOPHEN INJECTION 100 ML IVPB ONE (16:37)
[2022-08-16] MEDS ORDERED: ONDANSETRON 4 MG/2 ML VIAL ONE (16:37)
[2022-08-16] MEDS ORDERED: PANTOPRAZOLE SODIUM 40 MG VIAL ONE (16:38)
[2022-08-16 17:03] LABS: BASO % 0.7 % (0-2.0); HEMATOCRIT 40.7 % (35.4-49); HEMOGLOBIN 13.5 GM/dL (11.7-16.9); LYMPH % 40.6 % (8-40); MCHC 33.1 g/dl (32.0-35.9); MEAN CELL VOLUME 90.6 fl (80-96); MEAN PLT VOLUME 7.3 fl (7.5-11.1); MONO % 9.4 % (3.8-10.2); NEUT % 47.3 % (42.8-82.8); PLATELET COUNT 274 10^3/uL (134-434); RDW 19.7 % (11.9-15.9)
[2022-08-16 17:12] LABS: INR 1.29 (0.83-1.09); PROTHROMBIN TIME (PATIENT) 14.9 SEC (9.7-13.0)
[2022-08-16 17:14] LABS: ACTIVATED PTT 31.2 SECONDS (25.2-36.5)
[2022-08-16 17:21] LABS: ALBUMIN 3.9 g/dl (3.4-5.0); BLOOD UREA NITROGEN 6.9 mg/dL (7-18); CALCIUM 9.2 mg/dL (8.5-10.1)
[2022-08-16 17:24] LABS: CREATININE 0.8 mg/dL (0.55-1.3)
[2022-08-16 17:26] LABS: BILIRUBIN,TOTAL 0.2 mg/dL (0.2-1); TOT PROT 7.1 g/dl (6.4-8.2)
[2022-08-16 20:27] VITALS: BP 133/72; PULSE 72; TEMP 97.9
== END 2022-08-16 21:10 | disposition home or self-care (01) ==
LOC: JER 15:28
PROC: 3E033NZ Introduction of Analgesics, Hypnotics, Sedatives into Peripheral Vein, Percutaneous Approach (ICD-10-PCS; principal; 2022-08-16)
PROC: 3E033GC Introduction of Other Therapeutic Substance into Peripheral Vein, Percutaneous Approach (ICD-10-PCS; 2022-08-16)
PROC: 3E033GC Introduction of Other Therapeutic Substance into Peripheral Vein, Percutaneous Approach (ICD-10-PCS; 2022-08-16)
PROC: 3E033GC Introduction of Other Therapeutic Substance into Peripheral Vein, Percutaneous Approach (ICD-10-PCS; 2022-08-16)
DX: I85.10 Secondary esophageal varices without bleeding (principal); K92.1 Melena; R19.7 Diarrhea, unspecified; R10.13 Epigastric pain; R11.2 Nausea with vomiting, unspecified; Z20.822 Contact with and (suspected) exposure to COVID-19
CPT/HCPCS: 36415; 71045-TC-FY; 74177-TC; 80053; 82272; 83605; 83690; 84484; 85025; 85610; 85730; 86850; 86900; 86901; 87635; 93005; 93010; 99285-25; Q9967

== ENCOUNTER 2022-08-16 21:49 | Inpatient (IN) | payer OTHER ==
[2022-08-16 12:44] VITALS: BMI 29.9
[2022-08-17] MEDS ORDERED: BENZONATATE 200 MG CAPSULE PO PRN (00:16)
[2022-08-17] MEDS ORDERED: NALOXONE HCL (KLOXXADO) 8 MG SPRAY NS PRN (00:16)
[2022-08-17] MEDS ORDERED: DICYCLOMINE HCL 10 MG CAPSULE PO PRN (00:16)
[2022-08-17] MEDS ORDERED: POLYETHYLENE GLYCOL (HEALTHYLAX) 3350 17 GM PACKET PO PRN (00:16)
[2022-08-17] MEDS ORDERED: NICOTINE 10 MG CARTRIDGE (INHALER) IH PRN (00:16)
[2022-08-17] MEDS ORDERED: guaiFENesin 600 MG TABLET.ER (FP) PO PRN (00:16)
[2022-08-17] MEDS ORDERED: LOPERAMIDE HCL 2 MG CAPSULE PO PRN (00:16)
[2022-08-17] MEDS ORDERED: NALOXONE HCL 0.4 MG/ML VIAL IM PRN (00:16)
[2022-08-17] MEDS ORDERED: ONDANSETRON *ODT* 4 MG TABLET SL PRN (00:16)
[2022-08-17] MEDS ORDERED: MAGNESIUM HYDROX 2400MG/30ML ORAL SUSPENSION 30 ML CUP PO PRN (00:16)
[2022-08-17] MEDS ORDERED: IBUPROFEN 400 MG TABLET (FP) PO PRN (00:16)
[2022-08-17] MEDS ORDERED: BENZOCAINE/MENTHOL (CHLORASEPTIC ) LOZENGE MM PRN (00:16)
[2022-08-17] MEDS ORDERED: MAG HYDROX/AL HYDROX/SIMETH 30 ML UNIT-DOSE CUP PO PRN (00:16)
[2022-08-17] MEDS ORDERED: ACETAMINOPHEN 325 MG TABLET (FP) PO PRN (00:16)
[2022-08-17] MEDS ORDERED: BISMUTH SUBSALICYLATE 524 MG/30 ML PO PRN (00:16)
[2022-08-17] MEDS ORDERED: IBUPROFEN 600 MG TABLET (FP) PO PRN (00:16)
[2022-08-17] MEDS ORDERED: chlordiazePOXIDE HCL 25 MG CAPSULE PO PRN (00:20)
[2022-08-17] MEDS: chlordiazePOXIDE HCL 25 MG CAPSULE PO SCH ×4 (05:37→22:13)
[2022-08-17] MEDS: PRENATAL VITAMINS W/ FOLIC ACID TABLET (FP) PO SCH (10:16)
[2022-08-17] MEDS: NICOTINE 21 MG/24 HOURS TOPICAL PATCH TD SCH (10:17)
[2022-08-17] MEDS: METHOCARBAMOL 500 MG TABLET PO PRN (17:22)
[2022-08-17] MEDS ORDERED: BENZTROPINE MESYLATE 0.5 MG TABLET (FP) PO SCH (22:00)
[2022-08-17] MEDS: QUEtiapine FUMARATE 200 MG TABLET PO SCH (22:11)
[2022-08-17] MEDS: THIAMINE HCL 100 MG TABLET (FP) PO SCH (22:12)
[2022-08-17] MEDS: MELATONIN 5 MG TABLETS PO SCH (22:12)
[2022-08-18] MEDS: chlordiazePOXIDE HCL 25 MG CAPSULE PO SCH ×4 (05:09→22:26)
[2022-08-18] MEDS: METHOCARBAMOL 500 MG TABLET PO PRN ×2 (05:11→13:02)
[2022-08-18 09:44] LABS: HEMATOCRIT 41.5 % (35.4-49); HEMOGLOBIN 13.8 GM/dL (11.7-16.9); MCH 30.4 pg (25.7-33.7); MCHC 33.3 g/dl (32.0-35.9); MEAN CELL VOLUME 91.2 fl (80-96); MEAN PLT VOLUME 8.4 fl (7.5-11.1); PLATELET COUNT 268 10^3/uL (134-434); RBC 4.55 M/mm3 (4.00-5.60); RDW 19.8 % (11.9-15.9); WHITE BLOOD COUNT 3.5 K/mm3 (4.0-10.0)
[2022-08-18 09:57] LABS: POTASSIUM 3.7 mmol/L (3.5-5.1)
[2022-08-18 09:59] LABS: CALCIUM 8.9 mg/dL (8.5-10.1)
[2022-08-18] MEDS ORDERED: BENZTROPINE MESYLATE 0.5 MG TABLET (FP) PO SCH (10:00)
[2022-08-18 10:01] LABS: ALBUMIN 3.7 g/dl (3.4-5.0); BLOOD UREA NITROGEN 5.4 mg/dL (7-18)
[2022-08-18 10:04] LABS: BILIRUBIN,TOTAL 0.7 mg/dL (0.2-1); CREATININE 0.8 mg/dL (0.55-1.3); TOT PROT 6.6 g/dl (6.4-8.2)
[2022-08-18] MEDS: PRENATAL VITAMINS W/ FOLIC ACID TABLET (FP) PO SCH (10:35)
[2022-08-18] MEDS: CITALOPRAM HYDROBROMIDE 10 MG TABLET PO SCH (10:35)
[2022-08-18] MEDS: NICOTINE 21 MG/24 HOURS TOPICAL PATCH TD SCH (10:37)
[2022-08-18] MEDS: QUEtiapine FUMARATE 100 MG TABLET (FP) PO SCH (10:37)
[2022-08-18] MEDS: BENZTROPINE MESYLATE 1 MG TABLET PO SCH ×2 (10:37→22:28)
[2022-08-18] MEDS: QUEtiapine FUMARATE 200 MG TABLET PO SCH (22:27)
[2022-08-18] MEDS: THIAMINE HCL 100 MG TABLET (FP) PO SCH (22:28)
[2022-08-18] MEDS: MELATONIN 5 MG TABLETS PO SCH (22:28)
[2022-08-19] MEDS ORDERED: chlordiazePOXIDE HCL 10 MG CAPSULE PO PRN
[2022-08-19] MEDS: chlordiazePOXIDE HCL 10 MG CAPSULE PO SCH ×4 (05:32→22:32)
[2022-08-19] MEDS: METHOCARBAMOL 500 MG TABLET PO PRN ×3 (05:34→22:34)
[2022-08-19] MEDS: CITALOPRAM HYDROBROMIDE 10 MG TABLET PO SCH (10:25)
[2022-08-19] MEDS: QUEtiapine FUMARATE 100 MG TABLET (FP) PO SCH (10:25)
[2022-08-19] MEDS: PRENATAL VITAMINS W/ FOLIC ACID TABLET (FP) PO SCH (10:25)
[2022-08-19] MEDS: BENZTROPINE MESYLATE 1 MG TABLET PO SCH ×2 (10:26→22:33)
[2022-08-19] MEDS: NICOTINE 21 MG/24 HOURS TOPICAL PATCH TD SCH (10:28)
[2022-08-19] MEDS ORDERED: ALBUTEROL SO4 HFA INHALER IH PRN (12:53)
[2022-08-19] MEDS: THIAMINE HCL 100 MG TABLET (FP) PO SCH (22:32)
[2022-08-19] MEDS: QUEtiapine FUMARATE 200 MG TABLET PO SCH (22:32)
[2022-08-19] MEDS: MELATONIN 5 MG TABLETS PO SCH (22:32)
[2022-08-20] MEDS: chlordiazePOXIDE HCL 10 MG CAPSULE PO SCH ×2 (05:28→17:21)
[2022-08-20] MEDS: METHOCARBAMOL 500 MG TABLET PO PRN ×2 (05:30→17:25)
[2022-08-20] MEDS ORDERED: PATIENT'S OWN MEDICATION (NON-FORMULARY) (Dolutegravir/Rilpivirine [Juluca 50-25 Mg Tablet PO SCH (10:00)
[2022-08-20] MEDS: CITALOPRAM HYDROBROMIDE 10 MG TABLET PO SCH (10:08)
[2022-08-20] MEDS: BENZTROPINE MESYLATE 1 MG TABLET PO SCH ×2 (10:08→22:28)
[2022-08-20] MEDS: QUEtiapine FUMARATE 100 MG TABLET (FP) PO SCH (10:08)
[2022-08-20] MEDS: APIXABAN 5 MG TABLET PO SCH ×2 (10:08→22:29)
[2022-08-20] MEDS: NICOTINE 21 MG/24 HOURS TOPICAL PATCH TD SCH (10:09)
[2022-08-20] MEDS: PRENATAL VITAMINS W/ FOLIC ACID TABLET (FP) PO SCH (10:09)
[2022-08-20] MEDS: DOLUTEGRAVIR SODIUM 50 MG TABLET (NON-FORMULARY) PO SCH (11:39)
[2022-08-20] MEDS: RILPIVIRINE HCL 25 MG TABLET PO SCH (11:39)
[2022-08-20 16:45] VITALS: RESP 18
[2022-08-20] MEDS ORDERED: ATORVASTATIN CA 40 MG TABLET (FP) PO SCH (22:00)
[2022-08-20] MEDS: THIAMINE HCL 100 MG TABLET (FP) PO SCH (22:28)
[2022-08-20] MEDS: MELATONIN 5 MG TABLETS PO SCH (22:29)
[2022-08-20] MEDS: QUEtiapine FUMARATE 200 MG TABLET PO SCH (22:29)
[2022-08-21] MEDS ORDERED: chlordiazePOXIDE HCL 10 MG CAPSULE PO ONE (05:00)
[2022-08-21] MEDS: METHOCARBAMOL 500 MG TABLET PO PRN (05:23)
[2022-08-21] MEDS: DOLUTEGRAVIR SODIUM 50 MG TABLET (NON-FORMULARY) PO SCH (07:22)
[2022-08-21] MEDS: RILPIVIRINE HCL 25 MG TABLET PO SCH (07:22)
[2022-08-21] MEDS: APIXABAN 5 MG TABLET PO SCH (09:53)
[2022-08-21] MEDS: QUEtiapine FUMARATE 100 MG TABLET (FP) PO SCH (09:53)
[2022-08-21] MEDS: CITALOPRAM HYDROBROMIDE 10 MG TABLET PO SCH (09:53)
[2022-08-21] MEDS: BENZTROPINE MESYLATE 1 MG TABLET PO SCH (09:53)
[2022-08-21] MEDS: PRENATAL VITAMINS W/ FOLIC ACID TABLET (FP) PO SCH (09:53)
[2022-08-21] MEDS: NICOTINE 21 MG/24 HOURS TOPICAL PATCH TD SCH (09:54)
[2022-08-21] MEDS ORDERED: DOCUSATE SODIUM 100 MG CAPSULE (FP) PO SCH (10:00)
[2022-08-21] MEDS ORDERED: valACYclovir HCL 500 MG TABLET (FP) PO PRN (11:01)
[2022-08-21] MEDS ORDERED: valACYclovir HCL 500 MG TABLET (FP) PO SCH (11:15)
[2022-08-21 12:45] VITALS: BP 135/80; PULSE 72; TEMP 98.4
[2022-08-21] MEDS ORDERED: FAMOTIDINE 20 MG TABLET PO SCH (13:30)
== END 2022-08-21 01:38 | disposition other institution (70) | DRG 774 ==
LOC: YASAS 21:49 → Y3N 08-17 00:03
PROVIDERS: ADMIT Allergy & Immunology; ATTEND Surgery
PROC: HZ2ZZZZ Detoxification Services for Substance Abuse Treatment (ICD-10-PCS; principal; 2022-08-17)
DX: F10.230 Alcohol dependence with withdrawal, uncomplicated (principal); F14.20 Cocaine dependence, uncomplicated; F12.20 Cannabis dependence, uncomplicated; F17.210 Nicotine dependence, cigarettes, uncomplicated; F20.9 Schizophrenia, unspecified; F31.9 Bipolar disorder, unspecified; B20 Human immunodeficiency virus [HIV] disease; I25.10 Atherosclerotic heart disease of native coronary artery without angina pectoris; I10 Essential (primary) hypertension; Z62.810 Personal history of physical and sexual abuse in childhood; Z86.711 Personal history of pulmonary embolism; Z79.01 Long term (current) use of anticoagulants
CPT/HCPCS: 36415; 71045-TC-FY; 74177-TC; 80053; 82272; 83605; 83690; 84484; 85025; 85027; 85610; 85730; 86780; 86850; 86900; 86901; 87635; 87811; 93005; 93010; Q9967